=== PATIENT | female | born 1995 | race Caucasian/White ===

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

== ENCOUNTER 2017-02-22 13:40 | Outpatient (CLI) | payer MEDICAID ==
--- NOTE | 2017-02-22 14:37 | Non Stress Test Report ---
Non Stress Test Datetime Report Generated by CPN: 02/22/2017 14:37 DEMOGRAPHIC EGA NST: 33.3 INDICATION Indication for Study: Other Indication for Study (NST) Other: LABOR CHECK- SPOTTING MONITORING Monitor Explained: Monitor Explained; Test Explained; Patient Verbalized Understanding Time on Monitor: 02/22/2017 13:58 Time off Monitor: 02/22/2017 14:29 NST Duration: 31 NST INTERVENTIONS NST Interventions: PO Hydration; Reposition Patient Physician Notified NST: H. Kike, CNM BABY A: [id number] BABY A Movement : Present Contraction Frequency : NONE FHR Baseline : 125 Accelerations : 15X15 Decelerations : None Variability : Moderate 6-25bpm NST Review: Meets Criteria for Reactive NST NST Review and Verified By : MEETA Roblero Results: Reactive NST COMMENTS NST Comments: Provider on unit, reviewed strip NST REPORT Report Trigger: Send Report
[2017-02-22 15:07] LABS: APPEARANCE,URINE SLIGHTLY-CLOUDY; BILIRUBIN,URINE NEGATIVE (NEGATIVE); GLUCOSE, URINE NEGATIVE (NEGATIVE); KETONES,URINE NEGATIVE (NEGATIVE); LEUKOCYTE ESTERASE,URINE SMALL (NEGATIVE); NITRITE,URINE NEGATIVE (NEGATIVE); PROTEIN,URINE NEGATIVE (NEGATIVE); UROBILINOGEN,URINE NEGATIVE mg/dL (<2.0)
[2017-02-22 15:19] LABS: URINE BARBITURATES SCREEN NEGATIVE; URINE METHADONE SCREEN NEGATIVE; URINE OPIATES LOW NEGATIVE; URINE PHENCYCLIDINE SCREEN NEGATIVE
--- NOTE | 2017-02-22 17:51 | L&D Discharge Summary ---
OB Discharge Summary Datetime Report Generated by CPN: 02/22/2017 17:51 DISCHARGE DIAGNOSIS Diagnosis/Symptoms: Reassuring Surveillance - Annotate Details; Vaginal Bleeding; Other Diagnoses/Symptoms Other: Vaginal bleeding- Not in Labor Treatment/Procedures Other: amnisure Gestation: 33.2 Number of Babies in Womb: 1 Parity: 1 DIET/ACTIVITY/RESTRICTIONS Diet: Regular Activity: Normal Activity TEACHING/INSTRUCTIONS/REFERRALS Instructions Given To: Pt Instructions Understood: Patient Verbalized Understanding; Support Person Verbalized Understanding Referrals: None Educational Materials- Other: General d/c insturctions DISCHARGE INFORMATION Discharged AMA: No Discharge Date/Time: 02/22/2017 14:30 Discharged To: Home Discharge Provider Name: H. Kike, CNM Accompanied By: Significant Other Discharge Method: Ambulatory Condition: Stable FOLLOW UP INFORMATION Follow Up With: [facility] Follow Up On: As Scheduled Follow Up Phone Number: [facility] - GENERAL INSTR-CALL PROVIDER IF: Period Like Cramps: Period-like cramps or low dull backache that may come and go Cramps/Diarrhea: Abdominal cramps that may be accompanied by diarrhea Gush of Fluid/Blood: Gush of fluid or blood from your vagina (it is normal to have spotting after vaginal exam or intercourse) Vaginal Discharge: Change in the type or amount of vaginal discharge Decreased Movement: Your baby is not moving as much as usual- 4 movements in 1 hour after drinking and resting on side Temperature: Temperature greater than 100.0(F) orally
--- NOTE | 2017-02-24 22:47 | Antepartum Discharge Summary ---
Antepartum DC Datetime Report Generated by CPN: 02/24/2017 22:45 DIET/ACTIVITY/RESTRICTIONS Diet: Regular (02/22/2017 14:22:Katrina Marhefka, RN) Activity: Normal Activity (02/22/2017 14:22:Katrina Marhefka, RN) TEACHING/INSTRUCTIONS/REFERRALS Instructions Given To: Pt (02/22/2017 14:22:Katrina Marhefka, RN) Instructions Understood: Patient Verbalized Understanding; Support Person Verbalized Understanding (02/22/2017 14:22:Katrina Haley RN) Referrals: None (02/22/2017 14:22:Katrina Haley RN) Educational Materials- Other: General d/c insturctions (02/22/2017 14:22:Katrina Haley RN) DISCHARGE INFORMATION Discharged AMA: No (02/22/2017 14:22:Katrina Haley RN) Discharge Date/Time: 02/22/2017 14:30 (02/22/2017 14:22:Katrina Haley RN) Discharged To: Home (02/22/2017 14:22:Katrina Haley RN) Discharge Provider Name: Enoc Stokes CNM (02/22/2017 14:22:Katrina Haley RN) Accompanied By: Significant Other (02/22/2017 14:22:Katrina Haley RN) Discharge Method: Ambulatory (02/22/2017 14:22:Katrina Haley RN) Condition: Stable (02/22/2017 14:22:Katrina Haley RN) FOLLOW UP INFORMATION Follow Up With: [facility] (02/22/2017 14:22:Katrina Haley RN) Follow Up On: As Scheduled (02/22/2017 14:22:Katrina Haley RN) Follow Up Phone Number: [facility] - (02/22/2017 14:22:Katrina Haley RN) GENERAL INSTR-CALL PROVIDER IF: Period Like Cramps: Period-like cramps or low dull backache that may come and go (02/22/2017 14:22:Katrina Haley RN) Cramps/Diarrhea: Abdominal cramps that may be accompanied by diarrhea (02/22/2017 14:22:Katrina Haley RN) Gush of Fluid/Blood: Gush of fluid or blood from your vagina (it is normal to have spotting after vaginal exam or intercourse) (02/22/2017 14:22:Katrina Haley RN) Vaginal Discharge: Change in the type or amount of vaginal discharge (02/22/2017 14:22:Katrina Haley RN) Decreased Movement: Your baby is not moving as much as usual- 4 movements in 1 hour after drinking and resting on side (02/22/2017 14:22:Katrina Haley RN) Temperature: Temperature greater than 100.0(F) orally (02/22/2017 14:22:Katrina Haley RN) Hypertension Signs/Symptoms: Severe headache which is not relieved 30 minutes after taking Tylenol(Acetaminophen); Blurry vision or spots before your eyes; Severe heartburn or pain on the upper right side of your abdomen that is not relieved by an antacid; Increased swelling in your face, hands or feet (02/22/2017 14:22:Katrina Haley RN) Urinary Output: Decreased urinary output or dark colored urine (02/22/2017 14:22:Katrina Haley RN)
--- NOTE | 2017-02-24 22:47 | L&D Current Admission ---
Current Admit Datetime Report Generated by CPN: 02/24/2017 22:45 ADMISSION INFORMATION Chief Complaint: Pt states that her Rt leg swelled up within 5 minutes last night, Pt's significant other also stated he believes, "she is dilated because during intercourse last night she felt more open." Pt also stated she was bleeding like a period. (02/22/2017 14:00:Katrina Haley RN)
--- NOTE | 2017-02-24 22:47 | L&D General Admission ---
General Admit Datetime Report Generated by CPN: 02/24/2017 22:45 INFORMATION Patient Age: 21 (12/08/2016 11:43:QS system process) EDC: 04/09/2017 00:00 (12/08/2016 12:36:Liliam Bellavance, RNC) : 2 (12/08/2016 12:36:Liliam Bellavance, RNC) Para: 1 (12/08/2016 13:15:Liliam Bellavance, RNC) Para: 1 (12/08/2016 12:36:Liliam Bellavance, RNC) Term: 1 (12/08/2016 12:36:Liliam Bellavance, RNC) : 0 (12/08/2016 12:36:Liliam Bellavance, RNC) Spontaneous Abortions: 0 (12/08/2016 12:36:Liliam Bellavance, RNC) Induced Abortions: 0 (12/08/2016 12:36:Liliam Bellavance, RNC) Livin (12/08/2016 12:36:Liliam Bellavance, RNC) Cesareans: 0 (12/08/2016 12:36:Liliam Bellavance, RNC) VBACs: 0 (12/08/2016 12:36:Liliam Bellavance, RNC) Ectopic: 0 (12/08/2016 12:36:Liliam Bellavance, RNC) Multiple Births: 0 (12/08/2016 12:36:Liliam Bellavance, RNC) Baby, Number in Womb: 1 (12/08/2016 13:15:Lilaim Bellavance, RNC) Baby, Number in Womb: 1 (12/08/2016 12:36:Liliam Bellavance, RNC) CARE Primary Liaison Planner: [facility] (12/08/2016 12:36:Liliam Bellavance, RNC) Adequate Care: No (12/08/2016 12:36:Liliam Bellavance, RNC) Prepregnancy Weight (lb): 156 (12/08/2016 12:36:Liliam Bellavance, RNC) Prepregnancy Weight (kg): 70.9 (12/08/2016 12:36:QS system process) Height (in): 65 (12/08/2016 13:00:QS system process) ALLERGIES Medication Allergy: Yes (12/08/2016 12:36:Liliam Bellavance, RNC) Medication Allergies: anesthesia unknown type (12/08/2016 12:36:Liliam Bellavance, RNC) Latex Allergy: No Latex Allergies (12/08/2016 12:36:Liliam Bellavance, RNC) Food Allergies: no (12/08/2016 12:36:Liliam Bellavance, RNC) Environmental Allergies: no (12/08/2016 12:36:Liliam Bellavance, RNC) COMMUNICATION Primary Language: Greenlandic (12/08/2016 12:36:Liliam Bellavance, RNC) Communication Barrier(s): None (12/08/2016 12:36:Liliam Bellavance, RNC) DEMOGRAPHICS Address: [address] [place] [id number] (12/08/2016 11:43:QS system process) Zipcode: [id number] (12/08/2016 11:43:QS system process) Home (12/08/2016 11:43:QS system process) SSN: [id number] (12/08/2016 11:43:QS system process) Next of Kin Name: ALYCIA ADAM (12/08/2016 11:43:QS system process) Next of Kin (12/08/2016 11:43:QS system process) Next of Kin Relationship: OR (12/08/2016 11:43:QS system process) Date of : 1995 (12/08/2016 11:43:QS system process) Marital Status: (12/08/2016 11:43:QS system process) Sex: Female (12/08/2016 11:43:QS system process) Race: (12/08/2016 11:43:QS system process) Ethnicity: Non- or (12/08/2016 11:43:QS system process) Roman Catholic: None (12/08/2016 11:43:QS system process) DRUG AND ALCOHOL USE Alcohol: No (12/08/2016 12:36:Katrina Haley RN) Cigarettes: Never Smoker. [id number] (12/08/2016 12:36:Katrina Haley RN) Marijuana: No (12/08/2016 12:36:Katrina Haley RN) Cocaine: No (12/08/2016 12:36:Katrina Haley RN) Other Illicit Drugs: No (12/08/2016 12:36:Ktarina Haley RN) VACCINE HISTORY Influenza Vaccine: No (12/08/2016 12:36:Katrina Haley RN) Pneumococcal Vaccine: No (12/08/2016 12:36:Katrina Haley RN) Tetanus Vaccine: Yes (12/08/2016 12:36:Katrina Haley RN) Tdap Vaccine: No (12/08/2016 12:36:Katrina Haley RN) Hepatitis B Vaccine: Yes (12/08/2016 12:36:Katrina Haley RN) Feeding Preference: Both (12/08/2016 12:36:Katrina Haley RN) Benefit of Breast Feed Discussed: Yes (12/08/2016 12:36:Katrina Haley RN) Circumcision: No (12/08/2016 12:36:Katrina Haley RN) Classes Attended: No (12/08/2016 12:36:Katrina Haley RN) Tubal Ligation: No (12/08/2016 12:36:Katrina Haley RN) Tubal Authorization Signed: N/A (12/08/2016 12:36:Katrina Haley RN) Consent: N/A (12/08/2016 12:36:Katrina Haley RN) Consent Signed: N/A (12/08/2016 12:36:Katrina Haley RN) Pain Management Plans: Epidural (12/08/2016 12:36:ROLAND Padgett) Plans for Labor and Delivery: None (12/08/2016 12:36:ROLAND Padgett) Support Person: Octaviano Walden (12/08/2016 12:36:Katrina Haley RN) Support Person Relationship: Significant Other (12/08/2016 12:36:Katrina Haley RN) Cultural/Spritual Practice: No (12/08/2016 12:36:Katrina Haley RN) Spir/Cult Dietary Needs: No (12/08/2016 12:36:Katrina Haley RN) LIVING SITUATION/DISCHARGE PLAN Living Arrangements: House (12/08/2016 12:36:ROLAND Padgett) Adequate Access to:: Electric; Heat; Refrigeration; Plumbing/Running water; Phone; Transportation (12/08/2016 12:36:ROLAND Padgett) WIC Program: Yes (12/08/2016 12:36:ROLAND Padgett) Discharge Lumber Material Handler Person: Octaviano Walden (12/08/2016 12:36:Katrina Haley RN) Person to Help after Discharge: Octaviano Win (12/08/2016 12:36:Katrina Haley RN) Currently Using Commun Resources: Yes (12/08/2016 12:36:Katrina Haley RN) Specify Current Resource Used: Medicaid (12/08/2016 12:36:Katrina Haley RN) Outside Agency/Transferrer: Yes (12/08/2016 12:36:Katrina Haley RN) Car Seat for Discharge: Yes (12/08/2016 12:36:ROLAND Padgett) Adoption Requested: No (12/08/2016 12:36:ROLAND Padgett) Pt Contact w/infant Post : N/A (12/08/2016 12:36:ROLAND Padgett)
--- NOTE | 2017-02-24 22:47 | L&D Discharge Summary ---
OB Discharge Summary Datetime Report Generated by CPN: 02/24/2017 22:45 DISCHARGE DIAGNOSIS Diagnosis/Symptoms: Reassuring Surveillance - Annotate Details; Vaginal Bleeding; Other Diagnoses/Symptoms Other: Vaginal bleeding- Not in Labor Treatment/Procedures Other: amnisure Gestation: 33.3 Number of Babies in Womb: 1 Parity: 1 DIET/ACTIVITY/RESTRICTIONS Diet: Regular Activity: Normal Activity TEACHING/INSTRUCTIONS/REFERRALS Instructions Given To: Pt Instructions Understood: Patient Verbalized Understanding; Support Person Verbalized Understanding Referrals: None Educational Materials- Other: General d/c insturctions DISCHARGE INFORMATION Discharged AMA: No Discharge Date/Time: 02/22/2017 14:30 Discharged To: Home Discharge Provider Name: H. Kike, CNM Accompanied By: Significant Other Discharge Method: Ambulatory Condition: Stable FOLLOW UP INFORMATION Follow Up With: [facility] Follow Up On: As Scheduled Follow Up Phone Number: [facility] - GENERAL INSTR-CALL PROVIDER IF: Period Like Cramps: Period-like cramps or low dull backache that may come and go Cramps/Diarrhea: Abdominal cramps that may be accompanied by diarrhea Gush of Fluid/Blood: Gush of fluid or blood from your vagina (it is normal to have spotting after vaginal exam or intercourse) Vaginal Discharge: Change in the type or amount of vaginal discharge Decreased Movement: Your baby is not moving as much as usual- 4 movements in 1 hour after drinking and resting on side Temperature: Temperature greater than 100.0(F) orally
--- NOTE | 2017-02-25 04:47 | L&D General Admission ---
General Admit Datetime Report Generated by CPN: 02/25/2017 04:45 INFORMATION Patient Age: 21 (12/08/2016 11:43:QS system process) EDC: 04/09/2017 00:00 (12/08/2016 12:36:Liliam Bellavance, RNC) : 2 (12/08/2016 12:36:Liliam Bellavance, RNC) Para: 1 (12/08/2016 13:15:Liliam Bellavance, RNC) Para: 1 (12/08/2016 12:36:Liliam Bellavance, RNC) Term: 1 (12/08/2016 12:36:Liliam Bellavance, RNC) : 0 (12/08/2016 12:36:Liliam Bellavance, RNC) Spontaneous Abortions: 0 (12/08/2016 12:36:Liliam Bellavance, RNC) Induced Abortions: 0 (12/08/2016 12:36:Liliam Bellavance, RNC) Livin (12/08/2016 12:36:Liliam Bellavance, RNC) Cesareans: 0 (12/08/2016 12:36:Liliam Bellavance, RNC) VBACs: 0 (12/08/2016 12:36:Liliam Bellavance, RNC) Ectopic: 0 (12/08/2016 12:36:Liliam Bellavance, RNC) Multiple Births: 0 (12/08/2016 12:36:Liliam Bellavance, RNC) Baby, Number in Womb: 1 (12/08/2016 13:15:Liliam Bellavance, RNC) Baby, Number in Womb: 1 (12/08/2016 12:36:Liliam Bellavance, RNC) CARE Primary Securities Compliance Examiner: [facility] (12/08/2016 12:36:Liliam Bellavance, RNC) Adequate Care: No (12/08/2016 12:36:Liliam Bellavance, RNC) Prepregnancy Weight (lb): 156 (12/08/2016 12:36:Liliam Bellavance, RNC) Prepregnancy Weight (kg): 70.9 (12/08/2016 12:36:QS system process) Height (in): 65 (12/08/2016 13:00:QS system process) ALLERGIES Medication Allergy: Yes (12/08/2016 12:36:Liliam Bellavance, RNC) Medication Allergies: anesthesia unknown type (12/08/2016 12:36:Liliam Bellavance, RNC) Latex Allergy: No Latex Allergies (12/08/2016 12:36:Liliam Bellavance, RNC) Food Allergies: no (12/08/2016 12:36:Liliam Bellavance, RNC) Environmental Allergies: no (12/08/2016 12:36:Liliam Bellavance, RNC) COMMUNICATION Primary Language: Thai (12/08/2016 12:36:Liliam Bellavance, RNC) Communication Barrier(s): None (12/08/2016 12:36:Liliam Bellavance, RNC) DEMOGRAPHICS Address: [address] [place] [id number] (12/08/2016 11:43:QS system process) Zipcode: [phone] (12/08/2016 11:43:QS system process) Home (12/08/2016 11:43:QS system process) SSN: [id number] (12/08/2016 11:43:QS system process) Next of Kin Name: ALYCIA ADAM (12/08/2016 11:43:QS system process) Next of Kin (12/08/2016 11:43:QS system process) Next of Kin Relationship: OR (12/08/2016 11:43:QS system process) Date of : 1995 (12/08/2016 11:43:QS system process) Marital Status: (12/08/2016 11:43:QS system process) Sex: Female (12/08/2016 11:43:QS system process) Race: (12/08/2016 11:43:QS system process) Ethnicity: Non- or (12/08/2016 11:43:QS system process) Sabianist: None (12/08/2016 11:43:QS system process) DRUG AND ALCOHOL USE Alcohol: No (12/08/2016 12:36:Katrina Haley RN) Cigarettes: Never Smoker. [id number] (12/08/2016 12:36:Katrina Haley RN) Marijuana: No (12/08/2016 12:36:Katrina Haley RN) Cocaine: No (12/08/2016 12:36:Katrina Haley RN) Other Illicit Drugs: No (12/08/2016 12:36:Katrina Haley RN) VACCINE HISTORY Influenza Vaccine: No (12/08/2016 12:36:Katrian Haley RN) Pneumococcal Vaccine: No (12/08/2016 12:36:Katrina Haley RN) Tetanus Vaccine: Yes (12/08/2016 12:36:Katrina Haley RN) Tdap Vaccine: No (12/08/2016 12:36:Katrina Haley RN) Hepatitis B Vaccine: Yes (12/08/2016 12:36:Katrina Haley RN) Feeding Preference: Both (12/08/2016 12:36:Katrina Haley RN) Benefit of Breast Feed Discussed: Yes (12/08/2016 12:36:Katrina Haley RN) Circumcision: No (12/08/2016 12:36:Katrina Haley RN) Classes Attended: No (12/08/2016 12:36:Katrina Haley RN) Tubal Ligation: No (12/08/2016 12:36:Katrina Haley RN) Tubal Authorization Signed: N/A (12/08/2016 12:36:Katrina Haley RN) Consent: N/A (12/08/2016 12:36:Katrina Haley RN) Consent Signed: N/A (12/08/2016 12:36:Katrina Haley RN) Pain Management Plans: Epidural (12/08/2016 12:36:ROLAND Padgett) Plans for Labor and Delivery: None (12/08/2016 12:36:ROLAND Padgett) Support Person: Octaviano Walden (12/08/2016 12:36:Katrina Haley RN) Support Person Relationship: Significant Other (12/08/2016 12:36:Katrina Haley RN) Cultural/Spritual Practice: No (12/08/2016 12:36:Katrina Haley RN) Spir/Cult Dietary Needs: No (12/08/2016 12:36:Katrina Haley RN) LIVING SITUATION/DISCHARGE PLAN Living Arrangements: House (12/08/2016 12:36:ROLAND Padgett) Adequate Access to:: Electric; Heat; Refrigeration; Plumbing/Running water; Phone; Transportation (12/08/2016 12:36:ROLAND Padgett) WIC Program: Yes (12/08/2016 12:36:ROLAND Padgett) Discharge Practice Specialist Person: Octaviano Walden (12/08/2016 12:36:Katrina Haley RN) Person to Help after Discharge: Octaviano Win (12/08/2016 12:36:Katrina Haley RN) Currently Using Commun Resources: Yes (12/08/2016 12:36:Katrina Haley RN) Specify Current Resource Used: Medicaid (12/08/2016 12:36:Katrina Haley RN) Outside Agency/Soil And Plant Scientist: Yes (12/08/2016 12:36:Katrina Haley RN) Car Seat for Discharge: Yes (12/08/2016 12:36:ROLAND Padgett) Adoption Requested: No (12/08/2016 12:36:ROLAND Padgett) Pt Contact w/infant Post : N/A (12/08/2016 12:36:ROLAND Padgett)
--- NOTE | 2017-02-25 04:47 | L&D Current Admission ---
Current Admit Datetime Report Generated by CPN: 02/25/2017 04:45 ADMISSION INFORMATION Chief Complaint: Pt states that her Rt leg swelled up within 5 minutes last night, Pt's significant other also stated he believes, "she is dilated because during intercourse last night she felt more open." Pt also stated she was bleeding like a period. (02/22/2017 14:00:Katrina Haley RN)
--- NOTE | 2017-02-25 04:47 | L&D Discharge Summary ---
OB Discharge Summary Datetime Report Generated by CPN: 02/25/2017 04:45 DISCHARGE DIAGNOSIS Diagnosis/Symptoms: Reassuring Surveillance - Annotate Details; Vaginal Bleeding; Other Diagnoses/Symptoms Other: Vaginal bleeding- Not in Labor Treatment/Procedures Other: amnisure Gestation: 33.3 Number of Babies in Womb: 1 Parity: 1 DIET/ACTIVITY/RESTRICTIONS Diet: Regular Activity: Normal Activity TEACHING/INSTRUCTIONS/REFERRALS Instructions Given To: Pt Instructions Understood: Patient Verbalized Understanding; Support Person Verbalized Understanding Referrals: None Educational Materials- Other: General d/c insturctions DISCHARGE INFORMATION Discharged AMA: No Discharge Date/Time: 02/22/2017 14:30 Discharged To: Home Discharge Provider Name: H. Kike, CNM Accompanied By: Significant Other Discharge Method: Ambulatory Condition: Stable FOLLOW UP INFORMATION Follow Up With: [facility] Follow Up On: As Scheduled Follow Up Phone Number: [facility] - GENERAL INSTR-CALL PROVIDER IF: Period Like Cramps: Period-like cramps or low dull backache that may come and go Cramps/Diarrhea: Abdominal cramps that may be accompanied by diarrhea Gush of Fluid/Blood: Gush of fluid or blood from your vagina (it is normal to have spotting after vaginal exam or intercourse) Vaginal Discharge: Change in the type or amount of vaginal discharge Decreased Movement: Your baby is not moving as much as usual- 4 movements in 1 hour after drinking and resting on side Temperature: Temperature greater than 100.0(F) orally
--- NOTE | 2017-02-25 04:47 | Antepartum Discharge Summary ---
Antepartum DC Datetime Report Generated by CPN: 02/25/2017 04:45 DIET/ACTIVITY/RESTRICTIONS Diet: Regular (02/22/2017 14:22:Katrina Marhefka, RN) Activity: Normal Activity (02/22/2017 14:22:Katrina Marhefka, RN) TEACHING/INSTRUCTIONS/REFERRALS Instructions Given To: Pt (02/22/2017 14:22:Katrina Marhefka, RN) Instructions Understood: Patient Verbalized Understanding; Support Person Verbalized Understanding (02/22/2017 14:22:Katrina Haley RN) Referrals: None (02/22/2017 14:22:Katrina Haley RN) Educational Materials- Other: General d/c insturctions (02/22/2017 14:22:Katrina Haley RN) DISCHARGE INFORMATION Discharged AMA: No (02/22/2017 14:22:Katrina Haley RN) Discharge Date/Time: 02/22/2017 14:30 (02/22/2017 14:22:Katrina Haley RN) Discharged To: Home (02/22/2017 14:22:Katrina Haley RN) Discharge Provider Name: Enoc Stokes CNM (02/22/2017 14:22:Katrina Haley RN) Accompanied By: Significant Other (02/22/2017 14:22:Katrina Haley RN) Discharge Method: Ambulatory (02/22/2017 14:22:Katrina Haley RN) Condition: Stable (02/22/2017 14:22:Katrina Haley RN) FOLLOW UP INFORMATION Follow Up With: [facility] (02/22/2017 14:22:Katrina Haley RN) Follow Up On: As Scheduled (02/22/2017 14:22:Katrina Haley RN) Follow Up Phone Number: [facility] - (02/22/2017 14:22:Katrina Haley RN) GENERAL INSTR-CALL PROVIDER IF: Period Like Cramps: Period-like cramps or low dull backache that may come and go (02/22/2017 14:22:Katrina Haley RN) Cramps/Diarrhea: Abdominal cramps that may be accompanied by diarrhea (02/22/2017 14:22:Katrina Haley RN) Gush of Fluid/Blood: Gush of fluid or blood from your vagina (it is normal to have spotting after vaginal exam or intercourse) (02/22/2017 14:22:Katrina Haley RN) Vaginal Discharge: Change in the type or amount of vaginal discharge (02/22/2017 14:22:Katrina Haley RN) Decreased Movement: Your baby is not moving as much as usual- 4 movements in 1 hour after drinking and resting on side (02/22/2017 14:22:Katrina Haley RN) Temperature: Temperature greater than 100.0(F) orally (02/22/2017 14:22:Katrina Haley RN) Hypertension Signs/Symptoms: Severe headache which is not relieved 30 minutes after taking Tylenol(Acetaminophen); Blurry vision or spots before your eyes; Severe heartburn or pain on the upper right side of your abdomen that is not relieved by an antacid; Increased swelling in your face, hands or feet (02/22/2017 14:22:Katrina Haley RN) Urinary Output: Decreased urinary output or dark colored urine (02/22/2017 14:22:Katrina Haley RN)
--- NOTE | 2017-02-25 10:47 | Antepartum Discharge Summary ---
Antepartum DC Datetime Report Generated by CPN: 02/25/2017 10:45 DIET/ACTIVITY/RESTRICTIONS Diet: Regular (02/22/2017 14:22:Katrina Marhefka, RN) Activity: Normal Activity (02/22/2017 14:22:Katrina Marhefka, RN) TEACHING/INSTRUCTIONS/REFERRALS Instructions Given To: Pt (02/22/2017 14:22:Katrina Marhefka, RN) Instructions Understood: Patient Verbalized Understanding; Support Person Verbalized Understanding (02/22/2017 14:22:Katrina Haley RN) Referrals: None (02/22/2017 14:22:Katrina Haley RN) Educational Materials- Other: General d/c insturctions (02/22/2017 14:22:Katrina Haley RN) DISCHARGE INFORMATION Discharged AMA: No (02/22/2017 14:22:Katrina Haley RN) Discharge Date/Time: 02/22/2017 14:30 (02/22/2017 14:22:Katrina Haley RN) Discharged To: Home (02/22/2017 14:22:Katrina Haley RN) Discharge Provider Name: Enoc Stokes CNM (02/22/2017 14:22:Katrina Haley RN) Accompanied By: Significant Other (02/22/2017 14:22:Katrina Haley RN) Discharge Method: Ambulatory (02/22/2017 14:22:Katrina Haley RN) Condition: Stable (02/22/2017 14:22:Katrina Haley RN) FOLLOW UP INFORMATION Follow Up With: [facility] (02/22/2017 14:22:Katrina Haley RN) Follow Up On: As Scheduled (02/22/2017 14:22:Katrina Haley RN) Follow Up Phone Number: [facility] - (02/22/2017 14:22:Katrina Haley RN) GENERAL INSTR-CALL PROVIDER IF: Period Like Cramps: Period-like cramps or low dull backache that may come and go (02/22/2017 14:22:Katrina Haley RN) Cramps/Diarrhea: Abdominal cramps that may be accompanied by diarrhea (02/22/2017 14:22:Katrina Haley RN) Gush of Fluid/Blood: Gush of fluid or blood from your vagina (it is normal to have spotting after vaginal exam or intercourse) (02/22/2017 14:22:Katrina Haley RN) Vaginal Discharge: Change in the type or amount of vaginal discharge (02/22/2017 14:22:Katrina Haley RN) Decreased Movement: Your baby is not moving as much as usual- 4 movements in 1 hour after drinking and resting on side (02/22/2017 14:22:Katrina Haley RN) Temperature: Temperature greater than 100.0(F) orally (02/22/2017 14:22:Katrina Haley RN) Hypertension Signs/Symptoms: Severe headache which is not relieved 30 minutes after taking Tylenol(Acetaminophen); Blurry vision or spots before your eyes; Severe heartburn or pain on the upper right side of your abdomen that is not relieved by an antacid; Increased swelling in your face, hands or feet (02/22/2017 14:22:Katrina Haley RN) Urinary Output: Decreased urinary output or dark colored urine (02/22/2017 14:22:Katrina Haley RN)
--- NOTE | 2017-02-25 10:47 | L&D Discharge Summary ---
OB Discharge Summary Datetime Report Generated by CPN: 02/25/2017 10:45 DISCHARGE DIAGNOSIS Diagnosis/Symptoms: Reassuring Surveillance - Annotate Details; Vaginal Bleeding; Other Diagnoses/Symptoms Other: Vaginal bleeding- Not in Labor Treatment/Procedures Other: amnisure Gestation: 33.3 Number of Babies in Womb: 1 Parity: 1 DIET/ACTIVITY/RESTRICTIONS Diet: Regular Activity: Normal Activity TEACHING/INSTRUCTIONS/REFERRALS Instructions Given To: Pt Instructions Understood: Patient Verbalized Understanding; Support Person Verbalized Understanding Referrals: None Educational Materials- Other: General d/c insturctions DISCHARGE INFORMATION Discharged AMA: No Discharge Date/Time: 02/22/2017 14:30 Discharged To: Home Discharge Provider Name: H. Kike, CNM Accompanied By: Significant Other Discharge Method: Ambulatory Condition: Stable FOLLOW UP INFORMATION Follow Up With: [facility] Follow Up On: As Scheduled Follow Up Phone Number: [facility] - GENERAL INSTR-CALL PROVIDER IF: Period Like Cramps: Period-like cramps or low dull backache that may come and go Cramps/Diarrhea: Abdominal cramps that may be accompanied by diarrhea Gush of Fluid/Blood: Gush of fluid or blood from your vagina (it is normal to have spotting after vaginal exam or intercourse) Vaginal Discharge: Change in the type or amount of vaginal discharge Decreased Movement: Your baby is not moving as much as usual- 4 movements in 1 hour after drinking and resting on side Temperature: Temperature greater than 100.0(F) orally
--- NOTE | 2017-02-25 10:47 | L&D General Admission ---
General Admit Datetime Report Generated by CPN: 02/25/2017 10:45 INFORMATION Patient Age: 21 (12/08/2016 11:43:QS system process) EDC: 04/09/2017 00:00 (12/08/2016 12:36:Liliam Bellavance, RNC) : 2 (12/08/2016 12:36:Liliam Bellavance, RNC) Para: 1 (12/08/2016 13:15:Liliam Bellavance, RNC) Para: 1 (12/08/2016 12:36:Liliam Bellavance, RNC) Term: 1 (12/08/2016 12:36:Liliam Bellavance, RNC) : 0 (12/08/2016 12:36:Liliam Bellavance, RNC) Spontaneous Abortions: 0 (12/08/2016 12:36:Liliam Bellavance, RNC) Induced Abortions: 0 (12/08/2016 12:36:Liliam Bellavance, RNC) Livin (12/08/2016 12:36:Liliam Bellavance, RNC) Cesareans: 0 (12/08/2016 12:36:Liliam Bellavance, RNC) VBACs: 0 (12/08/2016 12:36:Liliam Bellavance, RNC) Ectopic: 0 (12/08/2016 12:36:Liliam Bellavance, RNC) Multiple Births: 0 (12/08/2016 12:36:Liliam Bellavance, RNC) Baby, Number in Womb: 1 (12/08/2016 13:15:Liliam Bellavance, RNC) Baby, Number in Womb: 1 (12/08/2016 12:36:Liliam Bellavance, RNC) CARE Primary Guard Rail Installer: [facility] (12/08/2016 12:36:Liliam Bellavance, RNC) Adequate Care: No (12/08/2016 12:36:Liliam Bellavance, RNC) Prepregnancy Weight (lb): 156 (12/08/2016 12:36:Liliam Bellavance, RNC) Prepregnancy Weight (kg): 70.9 (12/08/2016 12:36:QS system process) Height (in): 65 (12/08/2016 13:00:QS system process) ALLERGIES Medication Allergy: Yes (12/08/2016 12:36:Liliam Bellavance, RNC) Medication Allergies: anesthesia unknown type (12/08/2016 12:36:Liliam Bellavance, RNC) Latex Allergy: No Latex Allergies (12/08/2016 12:36:Liliam Bellavance, RNC) Food Allergies: no (12/08/2016 12:36:Liliam Bellavance, RNC) Environmental Allergies: no (12/08/2016 12:36:Liliam Bellavance, RNC) COMMUNICATION Primary Language: Divehi (12/08/2016 12:36:Liliam Bellavance, RNC) Communication Barrier(s): None (12/08/2016 12:36:Liliam Bellavance, RNC) DEMOGRAPHICS Address: [address] [place] [id number] (12/08/2016 11:43:QS system process) Zipcode: [address] (12/08/2016 11:43:QS system process) Home (12/08/2016 11:43:QS system process) SSN: [id number] (12/08/2016 11:43:QS system process) Next of Kin Name: ALYCIA ADAM (12/08/2016 11:43:QS system process) Next of Kin (12/08/2016 11:43:QS system process) Next of Kin Relationship: OR (12/08/2016 11:43:QS system process) Date of : 1995 (12/08/2016 11:43:QS system process) Marital Status: (12/08/2016 11:43:QS system process) Sex: Female (12/08/2016 11:43:QS system process) Race: (12/08/2016 11:43:QS system process) Ethnicity: Non- or (12/08/2016 11:43:QS system process) Worship: None (12/08/2016 11:43:QS system process) DRUG AND ALCOHOL USE Alcohol: No (12/08/2016 12:36:Katrina Haley RN) Cigarettes: Never Smoker. [id number] (12/08/2016 12:36:Katrina Haley RN) Marijuana: No (12/08/2016 12:36:Katrina Haley RN) Cocaine: No (12/08/2016 12:36:Katrina Haley RN) Other Illicit Drugs: No (12/08/2016 12:36:Katrina Haley RN) VACCINE HISTORY Influenza Vaccine: No (12/08/2016 12:36:Katrina Haley RN) Pneumococcal Vaccine: No (12/08/2016 12:36:Katrina Haley RN) Tetanus Vaccine: Yes (12/08/2016 12:36:Katrina Haley RN) Tdap Vaccine: No (12/08/2016 12:36:Katrina Haley RN) Hepatitis B Vaccine: Yes (12/08/2016 12:36:Katrina Haley RN) Feeding Preference: Both (12/08/2016 12:36:Katrina Haley RN) Benefit of Breast Feed Discussed: Yes (12/08/2016 12:36:Katrina Haley RN) Circumcision: No (12/08/2016 12:36:Katrina Haley RN) Classes Attended: No (12/08/2016 12:36:Katrina Haley RN) Tubal Ligation: No (12/08/2016 12:36:Katrina Haley RN) Tubal Authorization Signed: N/A (12/08/2016 12:36:Katrina Haley RN) Consent: N/A (12/08/2016 12:36:Katrina Haley RN) Consent Signed: N/A (12/08/2016 12:36:Katrina Haley RN) Pain Management Plans: Epidural (12/08/2016 12:36:ROLAND Padgett) Plans for Labor and Delivery: None (12/08/2016 12:36:ROLAND Padgett) Support Person: Octaviano Walden (12/08/2016 12:36:Katrina Haley RN) Support Person Relationship: Significant Other (12/08/2016 12:36:Katrina Haley RN) Cultural/Spritual Practice: No (12/08/2016 12:36:Katrina Haley RN) Spir/Cult Dietary Needs: No (12/08/2016 12:36:Katrina Haley RN) LIVING SITUATION/DISCHARGE PLAN Living Arrangements: House (12/08/2016 12:36:ROLAND Padgett) Adequate Access to:: Electric; Heat; Refrigeration; Plumbing/Running water; Phone; Transportation (12/08/2016 12:36:ROLAND Padgett) WIC Program: Yes (12/08/2016 12:36:ROLAND Padgett) Discharge Parts Control Clerk Person: Octaviano Walden (12/08/2016 12:36:Katrina Haley RN) Person to Help after Discharge: Octaviano Win (12/08/2016 12:36:Katrina Haley RN) Currently Using Commun Resources: Yes (12/08/2016 12:36:Katrina Haley RN) Specify Current Resource Used: Medicaid (12/08/2016 12:36:Katrnia Haley RN) Outside Agency/Industrial Pharmacist: Yes (12/08/2016 12:36:Katrina Haley RN) Car Seat for Discharge: Yes (12/08/2016 12:36:ROLAND Padgett) Adoption Requested: No (12/08/2016 12:36:ROLAND Padgett) Pt Contact w/infant Post : N/A (12/08/2016 12:36:ROLAND Padgett)
--- NOTE | 2017-02-25 10:47 | L&D Current Admission ---
Current Admit Datetime Report Generated by CPN: 02/25/2017 10:45 ADMISSION INFORMATION Chief Complaint: Pt states that her Rt leg swelled up within 5 minutes last night, Pt's significant other also stated he believes, "she is dilated because during intercourse last night she felt more open." Pt also stated she was bleeding like a period. (02/22/2017 14:00:Katrina Haley RN)
== END 2017-02-22 14:35 | disposition home or self-care (01) ==
LOC: LC 13:40
PROVIDERS: ATTEND Obstetrics & Gynecology
PROC: 4A1HXCZ Monitoring of Products of Conception, Cardiac Rate, External Approach (ICD-10-PCS; principal; 2017-02-22)
DX: O46.93 Antepartum hemorrhage, unspecified, third trimester (principal); Z3A.33 33 weeks gestation of pregnancy
CPT/HCPCS: 59025; 80307; 81001

== ENCOUNTER 2017-06-15 02:21 | Emergency (ER) | payer MEDICAID ==
[2017-06-15 02:27] VITALS: BP 117/62
[2017-06-15] MEDS ORDERED: NEOMY SULF/POLYMYX B SULF/HC OTIC SUSP 10 ML AS ONE (03:02)
[2017-06-15] MEDS ORDERED: IBUPROFEN 600 MG TABLET PO ONE (03:03)
--- NOTE | 2017-06-15 03:03 | ER Document Report ---
ED ENT - General Mode of Arrival: Ambulatory Information source: Patient TRAVEL OUTSIDE OF THE [place] IN LAST 30 DAYS: No - HPI Patient complains to provider of: Ear problem Onset: Yesterday Associated symptoms: Ear pain Similar symptoms previously: Yes Recently seen / treated by doctor: No - General Chief Complaint: Ear Pain Stated Complaint: EARACHE Time Seen by Provider: 06/15/17 02:53 Notes: Patient is a 21-year-old female presenting to the emergency department with chief complaint of otitis externa. Patient states that she usually gets swimmer's ear once a year. Patient denies swelling or being in the water. Patient complains of pain to her right ear and states on the lips emergency department she started experiencing pain as well in her left ear. Patient has not taken any Tylenol or Motrin and she just got off work and came to the emergency department for her pain. Patient denies any other symptoms of sore throat, congestion, or cough. Patient's pain was onset yesterday. Patient has. Patient does not have a primary care physician. (LUIS PAEZ) - Related Data Allergies/Adverse Reactions: anesthesia unsure of type Allergy (Uncoded 06/15/17 02:21) Home Medications: Current Home Medications No Home Medications 06/15/17 [History] Past Medical History - General Information source: Patient - Social History Smoking Status: Never Smoker Cigarette use (# per day): No Chew tobacco use (# tins/day): No Smoking Education Provided: No Frequency of alcohol use: None Drug Abuse: None Family History: None Patient has suicidal ideation: No Patient has homicidal ideation: No Pulmonary Medical History: Reports: Hx Asthma Past Surgical History: Reports: Hx Oral Surgery - Abscess - Immunizations Hx Diphtheria, Pertussis, Tetanus Vaccination: Yes Review of Systems - Review of Systems Constitutional: No symptoms reported EENT: See HPI, Ear pain Cardiovascular: No symptoms reported Respiratory: No symptoms reported Gastrointestinal: No symptoms reported Genitourinary: No symptoms reported Female Genitourinary: No symptoms reported Musculoskeletal: No symptoms reported Skin: No symptoms reported Hematologic/Lymphatic: No symptoms reported Neurological/Psychological: No symptoms reported -: Yes All other systems reviewed and negative Physical Exam - Vital signs Interpretation: Normal - Vital signs Vitals: Temp Pulse Resp BP Pulse Ox 98.6 F 99 H 16 117/62 99 06/15/17 02:22 06/15/17 02:22 06/15/17 02:22 06/15/17 02:22 06/15/17 02:22 - Notes Notes: GENERAL: Alert, interacts well. No acute distress. HEAD: Normocephalic, atraumatic. EYES: Appear normal. Pupils equal, round, and reactive to light. ENT: Moist mucus membranes, tongue midline. Nares patent, no nasal septal hematoma, TM's intacts. Pain with manipulation of the external rightear. No otitis media. No signs of masses, erythema or swelling to the ear. NECK: Full range of motion. Supple. Trachea midline. LUNGS: Clear to auscultation bilaterally, no wheezes, rales, or rhonchi. No respiratory distress. HEART: Regular rate and rhythm. No murmurs, gallops, or rubs. ABDOMEN: Soft, non-tender. Non-distended. Normal bowel sounds. EXTREMITIES: Moves all 4 extremities spontaneously. Normal strength. No edema. NEUROLOGICAL: Alert and oriented x3. Normal speech. No focal neurological deficits. GSC 15. PSYCH: Normal affect, normal mood. SKIN: Warm, dry, normal turgor. No rashes or lesions noted. (LUIS PAEZ) Discharge - Discharge Clinical Impression: Nonspecific chest pain Otitis externa Qualifiers: Otitis externa type: unspecified type Chronicity: acute Laterality: right Qualified Code(s): H60.501 - Unspecified acute noninfective otitis externa, right ear Condition: Stable Disposition: HOME, SELF-CARE Additional Instructions: Otitis Externa You have otitis externa -- an infection of the outer ear canal. This can be very painful. It's sometimes called "swimmer's ear," because it often occurs after prolonged water exposure. Many things, such as earwax and dirt in the ear, can contribute to it. The usual treatment is antibiotic/antiinflammatory ear drops. Occasionally , a wick will be placed in the ear to draw in the medicine. If the infection is severe, an oral antibiotic may be prescribed. Pain medication is often needed. Avoid getting water in the ear. Outer ear infections often take longer to heal than you might expect. Some tenderness and ache in the ear may persist for about two weeks. See your physician if you fail to improve as expected. Call the doctor at once if you develop fever, increasing swelling (particularly if it makes your ear "poke out"), severe headache, stiff neck, or decreased hearing. Forms: Return to Work Referrals: [facility] [Provider Group] (Call for an appointment to be seen in follow-up in 3-5 days return for increasing worsening or new symptoms) Scribe Attestation: 06/15/17 03:05 I personally performed the services described in the documentation reviewed the documentation recorded by my scribe in my presence and it accurately and completely records my words and actions (TAE CROWELL) Scribe Documentation - Scribe Written by Scrmarlene:: Ernie Steve, 06/15/2017 3:20 acting as scribe for :: Torrey
== END 2017-06-15 03:20 | disposition home or self-care (01) ==
LOC: ER 02:21
DX: H60.501 Unspecified acute noninfective otitis externa, right ear (principal); R07.9 Chest pain, unspecified; H92.03 Otalgia, bilateral; J45.909 Unspecified asthma, uncomplicated; Z88.4 Allergy status to anesthetic agent
CPT/HCPCS: 99282; J3490 ×2

== ENCOUNTER 2017-07-31 08:28 | Emergency (ER) | payer SELFPAY ==
[2017-07-31] MEDS ORDERED: ONDANSETRON 4 MG TAB.RAPDIS PO ONE (09:10)
[2017-07-31] MEDS ORDERED: NORMAL SALINE 1000 ML 1,000 ML IV ONE (09:17)
[2017-07-31] MEDS ORDERED: FAMOTIDINE INJ/PF 20 MG/2 ML SDV IV ONE (09:17)
--- NOTE | 2017-07-31 09:18 | ER Document Report ---
ED Medical Screen (RME) - General Chief Complaint: Abdominal Pain Stated Complaint: ABDOMINAL PAIN Time Seen by Provider: 07/31/17 09:10 TRAVEL OUTSIDE OF THE [place] IN LAST 30 DAYS: No - HPI Notes: 07/31/17 09:17 Epigastric abdominal pain 3 days nausea vomiting today. - Related Data Allergies/Adverse Reactions: anesthesia unsure of type Allergy (Uncoded 07/31/17 08:41) Past Medical History Pulmonary Medical History: Reports: Hx Asthma Renal/ Medical History: Denies: Hx Peritoneal Dialysis Past Surgical History: Reports: Hx Oral Surgery - Abscess - Immunizations Hx Diphtheria, Pertussis, Tetanus Vaccination: Yes Review of Systems - Review of Systems Gastrointestinal: Abdominal pain, Nausea, Vomiting Physical Exam - Vital signs Vitals: Temp Pulse Resp BP Pulse Ox 99.3 F 81 16 124/77 99 07/31/17 08:40 07/31/17 08:40 07/31/17 08:40 07/31/17 08:40 07/31/17 08:40 Course - Vital Signs Vital signs: Temp Pulse Resp BP Pulse Ox 99.3 F 81 16 124/77 99 07/31/17 08:40 07/31/17 08:40 07/31/17 08:40 07/31/17 08:40 07/31/17 08:40
[2017-07-31 09:32] LABS: ABSOLUTE BASOPHILS # (AUTO) 0.1 10^3/uL (0.0-0.2); ABSOLUTE EOSINOPHILS # (AUTO) 0.2 10^3/uL (0.0-0.6); ABSOLUTE LYMPHOCYTES (AUTO) 1.8 10^3/uL (0.5-4.7); ABSOLUTE MONOCYTES (AUTO) 0.7 10^3/uL (0.1-1.4); ABSOLUTE NEUT (AUTO) 6.7 10^3/uL (1.7-8.2); EOSINOPHILS % (AUTO) 2.4 % (0-6); HEMATOCRIT 34.9 % (36.0-47.0); HEMOGLOBIN 12.1 g/dL (12.0-15.5); HGB HCT DIFFERENCE 1.4; LYMPHOCYTES % (AUTO) 19.1 % (13-45); MEAN CORPUSCULAR HEMOGLOBIN 29.8 pg (27.0-33.4); MEAN CORPUSCULAR HGB CONC 34.7 g/dL (32.0-36.0); MEAN CORPUSCULAR VOLUME 86 fl (80-97); RED BLOOD COUNT 4.06 10^6/uL (3.72-5.28); SEGMENTED NEUTROPHILS % (AUTO) 70.5 % (42-78); WHITE BLOOD COUNT 9.6 10^3/uL (4.0-10.5)
[2017-07-31 09:37] LABS: APPEARANCE,URINE CLEAR; BILIRUBIN,URINE NEGATIVE (NEGATIVE); GLUCOSE, URINE NEGATIVE (NEGATIVE); KETONES,URINE NEGATIVE (NEGATIVE); LEUKOCYTE ESTERASE,URINE NEGATIVE (NEGATIVE); NITRITE,URINE NEGATIVE (NEGATIVE); PROTEIN,URINE NEGATIVE (NEGATIVE); URINE SPECIFIC GRAVITY 1.008; UROBILINOGEN,URINE NEGATIVE mg/dL (<2.0)
--- NOTE | 2017-07-31 09:54 | ER Document Report ---
ED GI/ - General Chief Complaint: Abdominal Pain Stated Complaint: ABDOMINAL PAIN Time Seen by Provider: 07/31/17 09:10 Mode of Arrival: Ambulatory Information source: Patient TRAVEL OUTSIDE OF THE [place] IN LAST 30 DAYS: No - HPI Patient complains to provider of: Abdominal pain, Vomiting Onset: This morning Timing/Duration: Gradual Quality of pain: Achy, Dull Severity at maximum: Moderate Severity in ED: Moderate Context: denies: , Recent trauma Location: Epigastric, LLQ, RLQ Vaginal bleeding (Compared to normal period): None Menstrual period history: denies: Associated symptoms: Nausea, Vomiting. denies: Dysuria, Fever Exacerbated by: Food Relieved by: Denies Similar symptoms previously: No Recently seen / treated by doctor: No - Related Data Allergies/Adverse Reactions: anesthesia unsure of type Allergy (Uncoded 07/31/17 08:41) Past Medical History - General Information source: Patient - Social History Smoking Status: Unknown if Ever Smoked Frequency of alcohol use: None Drug Abuse: None Lives with: Family Family History: None Patient has suicidal ideation: No Patient has homicidal ideation: No - Past Medical History Cardiac Medical History: Reports: None Pulmonary Medical History: Reports: Hx Asthma Neurological Medical History: Reports: None Endocrine Medical History: Reports: None Renal/ Medical History: Reports: None. Denies: Hx Peritoneal Dialysis Malignancy Medical History: Reports: None GI Medical History: Reports: None Musculoskeltal Medical History: Reports None Psychiatric Medical History: Reports: None Past Surgical History: Reports: Hx Oral Surgery - Abscess - Immunizations Hx Diphtheria, Pertussis, Tetanus Vaccination: Yes Review of Systems - Review of Systems Constitutional: denies: Chills, Fever EENT: No symptoms reported Cardiovascular: No symptoms reported Respiratory: No symptoms reported Gastrointestinal: See HPI Genitourinary: No symptoms reported Female Genitourinary: No symptoms reported Musculoskeletal: No symptoms reported Skin: No symptoms reported Neurological/Psychological: No symptoms reported Physical Exam - Vital signs Vitals: Temp Pulse Resp BP Pulse Ox 99.3 F 81 16 124/77 99 07/31/17 08:40 07/31/17 08:40 07/31/17 08:40 07/31/17 08:40 07/31/17 08:40 Interpretation: Normal - General General appearance: Appears well, Alert In distress: None - HEENT Head: Normocephalic Eyes: Normal Conjunctiva: Normal Ears: Normal Nasal: Normal Mouth/Lips: Normal Mucous membranes: Dry Pharynx: Normal Neck: Normal - Respiratory Respiratory status: No respiratory distress - Cardiovascular Rhythm: Regular - Abdominal Inspection: Normal Distension: No distension Bowel sounds: Hypoactive Tenderness: Tender - MILD, DIFFUSE - Back Back: Normal - Extremities General upper extremity: Normal inspection General lower extremity: Normal inspection - Neurological Neuro grossly intact: Yes Cognition: Normal Orientation: AAOx4 - Psychological Associated symptoms: Normal affect, Normal mood - Skin Skin Temperature: Warm Skin Moisture: Dry Skin Color: Normal Skin Turgor: Elastic Course - Re-evaluation Re-evalutation: 07/31/17 12:39 Patient states she is much improved. Results of laboratory and radiographic evaluation discussed. - Vital Signs Vital signs: Temp Pulse Resp BP Pulse Ox 99.3 F 81 16 124/77 99 07/31/17 08:40 07/31/17 08:40 07/31/17 08:40 07/31/17 08:40 07/31/17 08:40 - Laboratory Result Diagrams: 07/31/17 09:15 07/31/17 09:15 Laboratory results interpreted by me: 07/31/17 07/31/17 09:15 09:15 Hct 34.9 L AST 35 H ALT 74 H Discharge - Discharge Clinical Impression: Gastritis Qualifiers: Gastritis type: unspecified gastritis Chronicity: acute Gastritis bleeding: without bleeding Qualified Code(s): K29.00 - Acute gastritis without bleeding Cholelithiasis Qualifiers: Cholelithiasis location: gallbladder Cholecystitis presence: without cholecystitis Biliary obstruction: without biliary obstruction Qualified Code(s) : K80.20 - Calculus of gallbladder without cholecystitis without obstruction Condition: Stable Disposition: HOME, SELF-CARE Instructions: Gastritis ([facility]), Gallbladder Disease ([facility]), Acid-Suppressing Medication ([facility]) Additional Instructions: BLAND DIET, AVOID GREASY OR SPICY FOODS. TAKE PEPCID OR ZANTAC OR TAGAMET DIRECTED FOR NEXT 2-3 DDAYS. FOLLOW UP WITH GENERAL SURGEON ABOUT GALLBLADDER. RETURN TO E.R. IF PROBLEMS, ANY TIME. Referrals: [facility] [Provider Group] - Follow up as needed
[2017-07-31 09:55] LABS: ALANINE AMINOTRANSFERASE 74 U/L (5-35); ALBUMIN 4.4 g/dL (3.7-5.6); ALKALINE PHOSPHATASE 89 U/L (50-135); ANION GAP 13 (5-19); ASPARTATE AMINO TRANSFERASE 35 U/L (5-30); BILIRUBIN,DIRECT 0.4 mg/dL (0.0-0.4); BILIRUBIN,TOTAL 0.5 mg/dL (0.2-1.3); BLOOD UREA NITROGEN 11 mg/dL (7-20); CALCIUM 9.7 mg/dL (8.4-10.2); CARBON DIOXIDE 24 mmol/L (22-30); CHLORIDE 105 mmol/L (98-107); CREATININE RESULT 0.73 mg/dL (0.52-1.25); GLUCOSE 87 mg/dL (75-110); LIPASE 100.9 U/L (23-300); POTASSIUM 4.4 mmol/L (3.6-5.0); SODIUM 142.2 mmol/L (137-145); TOTAL PROTEIN 7.7 g/dL (6.3-8.2)
[2017-07-31 09:56] LABS: URINE BARBITURATES SCREEN NEGATIVE; URINE METHADONE SCREEN NEGATIVE; URINE OPIATES LOW NEGATIVE; URINE PHENCYCLIDINE SCREEN NEGATIVE
[2017-07-31 09:59] LABS: ALCOHOL < 10 mg/dL (NONE DETECTED)
--- NOTE | 2017-07-31 11:21 | RADIOLOGY REPORT (SQ) ---
EXAM DESCRIPTION: U/S ABDOMEN LIMITED W/O DOP COMPLETED DATE/TIME: 07/31/2017 11:04 am REASON FOR STUDY: EPIGASTRIC PAIN, N/V COMPARISON: None. TECHNIQUE: Dynamic and static grayscale images acquired of the abdomen and recorded on PACS. Additio nal selected color Doppler and spectral images recorded. LIMITATIONS: None. FINDINGS: PANCREAS: No masses. Visualized pancreatic duct normal caliber. LIVER: No masses. Echotexture normal. LIVER VASCULATURE: Normal directional flow of the main portal vein and hepatic veins. GALLBLADDER: Gallstone(s). No pericholecystic fluid. No wall thickening. ULTRASOUND-DETECTED HUNTLEY'S SIGN: Negative. INTRAHEPATIC DUCTS AND COMMON DUCT: CBD and intrahepatic ducts normal caliber. No filling defects. INFERIOR VENA CAVA: Normal flow. AORTA: No aneurysm. RIGHT KIDNEY: Normal size. Normal echogenicity. No solid or suspicious masses. No hydronephrosis. No calcifications. PERITONEAL AND RIGHT PLEURAL SPACE: No ascites or effusions. OTHER: No other significant findings. IMPRESSION: GALLSTONES. NO OTHER SIGNIFICANT FINDINGS. TECHNICAL DOCUMENTATION: JOB ID: [id number] [employer]- All Rights Reserved
[2017-07-31] MEDS ORDERED: MAG HYDROX/AL HYDROX/SIMETH SUSP 30 ML UDCUP PO ONE (11:50)
[2017-07-31] MEDS ORDERED: METOCLOPRAMIDE HCL ORAL SOLN 10 MG/10 ML UDCUP PO ONE (11:50)
[2017-07-31] MEDS ORDERED: LIDOCAINE 2% VISCOUS SOLN 20 ML UDCUP PO ONE (11:50)
[2017-07-31] MEDS ORDERED: HYDROMORPHONE HCL INJ/PF 2 MG/ML AMPULE IV ONE (11:50)
[2017-07-31 13:30] VITALS: BP 125/78
== END 2017-07-31 13:25 | disposition home or self-care (01) ==
LOC: ER 08:28
DX: K29.00 Acute gastritis without bleeding (principal); K80.20 Calculus of gallbladder without cholecystitis without obstruction; R10.13 Epigastric pain; R10.30 Lower abdominal pain, unspecified; R11.2 Nausea with vomiting, unspecified
CPT/HCPCS: 99284; 96361; 96374; 96375; 36415; 80307 ×2; 84702; 83690; 85025; 80053; 81001; 76705; S0119; J3490; J1170; J7030; S0028

== ENCOUNTER → 2017-11-02 | Outpatient (CLI) | payer BC ==
--- NOTE | 2017-11-02 17:16 | RADIOLOGY REPORT (SQ) ---
EXAM DESCRIPTION: U/S OB TRANSVAGINAL W/O DOP COMPLETED DATE/TIME: 11/02/2017 4:48 pm REASON FOR STUDY: Z34.81 ENCOUNTER FOR SUPRVSN OF NORMAL , FIRST TRIMESTER Z34.81 ENCOUNTE R FOR SUPRVSN OF NORMAL , FIRST TRIM COMPARISON: None. TECHNIQUE: Transvaginal static and realtime grayscale images acquired of the pelvis. Additional davis cted spectral and color Doppler images recorded. All images stored on PACs. bHCG: Not applicable. LIMITATIONS: None. FINDINGS: FETUS: Living intrauterine . EGA: 6 week 2 day. JAIME: 06/26/2016. FHR: 113 beats per minute. SUBCHORIONIC BLEED: Yes. SIZE OF BLEED: 0.4 x 1.5 cm. UTERUS: No masses. No anomalies. RIGHT ADNEXA: Normal ovary with normal vascular flow. No adnexal free fluid. Cysts measuring 1.6 cm and 1.9 cm. LEFT ADNEXA: Ovary not identified. No adnexal free fluid. No adnexal masses. FREE FLUID: None. OTHER: No other significant finding. IMPRESSION: LIVING INTRAUTERINE . EGA 6 WEEK 2 DAY. Trimester of : First - 0 to 13 weeks. TECHNICAL DOCUMENTATION: JOB ID: [id number] [employer]- All Rights Reserved
== END ==
LOC: RAD 15:45
PROVIDERS: ATTEND Nurse Practitioner Women's Health
DX: Z34.81 Encounter for supervision of other normal pregnancy, first trimester (principal)
CPT/HCPCS: 76817

== ENCOUNTER 2017-12-09 10:34 | Emergency (ER) | payer SELFPAY ==
[2017-12-09 10:56] VITALS: BP 123/70
[2017-12-09] MEDS ORDERED: DIPHENHYDRAMINE HCL 50 MG/ML VIAL IV ONE (12:29)
[2017-12-09] MEDS ORDERED: NORMAL SALINE 1000 ML 1,000 ML IV ONE (12:29)
--- NOTE | 2017-12-09 12:31 | ER Document Report ---
HPI - HPI Patient complains to provider of: Respiratory symptoms, vomiting diarrhea Onset: Last week Onset/Duration: Persistent Quality of pain: No pain Pain Level: Denies Context: Presents with a one-week history of nausea, vomiting and diarrhea. Patient states she is vomited 4 times today and had diarrhea 1. Patient states that she is currently about 11 weeks and is followed by the health department. Patient has a confirmation ultrasound to confirm the location of the . Patient states she did have lower abdominal pain earlier but is presently resolved. Patient denies any vaginal bleeding. Denies any dysuria symptoms. Patient does report recent sick contacts in the household. Associated Symptoms: Nonproductive cough, Diarrhea, Nausea, Vomiting. denies: Chest pain, Earache, Fever, Headache, Rhinnorhea, Sore throat Exacerbated by: Denies Relieved by: Denies Similar symptoms previously: Yes Recently seen / treated by doctor: No - ROS ROS below otherwise negative: Yes Systems Reviewed and Negative: Yes All other systems reviewed and negative - CONSTITUTIONAL Constitutional: REPORTS: Chills. DENIES: Fever - EENT EENT: DENIES: Sore Throat - NEURO Neurology: REPORTS: Weakness - CARDIOVASCULAR Cardiovascular: DENIES: Chest pain - RESPIRATORY Respiratory: REPORTS: Coughing. DENIES: Trouble Breathing - GASTROINTESTINAL Gastrointestinal: REPORTS: Abdominal Pain - Initially, now resolved, Nausea, Patient vomiting, Diarrhea. DENIES: Black / Bloody Stools - URINARY Urinary: DENIES: Dysuria, Urgency, Frequency - REPRODUCTIVE Reproductive: REPORTS: :. 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 denies: Thyroid Disfunction Patient has suicidal ideation: No Patient has homicidal ideation: No Pulmonary Medical History: Reports: Hx Asthma Renal/ Medical History: Denies: Hx Peritoneal Dialysis Past Surgical History: Reports: Hx Oral Surgery - Abscess - Immunizations Immunizations up to date: Yes Hx Diphtheria, Pertussis, Tetanus Vaccination: Yes Vertical Provider Document - CONSTITUTIONAL Agree With Documented VS: Yes Exam Limitations: No Limitations General Appearance: WD/WN, No Apparent Distress - INFECTION CONTROL TRAVEL OUTSIDE OF THE [place] IN LAST 30 DAYS: No - HEENT HEENT: Atraumatic, Normocephalic. negative: Pharyngeal Exudate, Pharyngeal Tenderness, Pharyngeal Erythema, Tympanic Membrane Red, Tympanic Membrane Bulging - NECK Neck: Normal Inspection, Supple. negative: Lymphadenopathy-Left, Lymphadenopathy-Right - RESPIRATORY Respiratory: No Respiratory Distress, Chest Non-Tender, Rhonchi. negative: Rales, Wheezing O2 Sat by Pulse Oximetry: 99 - CARDIOVASCULAR Cardiovascular: Regular Rate, Regular Rhythm, No Murmur - GI/ABDOMEN Gastrointestinal: Abdomen Soft, Abdomen Non-Tender, No Organomegaly - BACK Back: Normal Inspection. negative: CVA Tenderness-Right, CVA Tenderness-Left - MUSCULOSKELETAL/EXTREMETIES Musculoskeletal/Extremeties: MAEW, FROM - NEURO Level of Consciousness: Awake, Alert, Appropriate Motor/Sensory: No Motor Deficit - DERM Integumentary: Warm, Dry, No Rash Course - Re-evaluation Re-evalutation: 12/09/17 13:05 Patient states that she does not want any IV fluids or lab work performed. Patient is requesting the chest x-ray be performed as well as an influenza test. Patient feels that she can manage her vomiting symptoms at home and that she does not want any needle sticks at this time. Discussed with patient reasoning behind ordering IV fluids as well as diagnostic test. Patient competent to make this decision for herself and agrees to sign a refusal of treatment form. 12/09/17 13:55 The patient now advises nurse that she does not want influenza testing or a urinalysis collected. Patient's significant other is at desk requesting to know how much longer on her x-ray results as they are anxious to be leaving. Abdomen soft, nontender. No active vomiting or diarrhea during the ER visit. Patient does not want any additional lab testing performed today. Patient plans to follow-up with her EMERGENCY ROOM CLINICIAN provider at the health department for recheck. Pt feels that she can manage her symptoms at home. - Vital Signs Vital signs: Temp Pulse Resp BP Pulse Ox 98.0 F 95 18 123/70 99 12/09/17 10:54 12/09/17 10:54 12/09/17 10:54 12/09/17 10:54 12/09/17 10:54 - Diagnostic Test Radiology reviewed: Reports reviewed Discharge - Discharge Clinical Impression: Vomiting and diarrhea Upper respiratory infection Qualifiers: URI type: unspecified URI Qualified Code(s): J06.9 - Acute upper respiratory infection, unspecified Condition: Stable Disposition: HOME, SELF-CARE Instructions: Diarrhea, Nonspecific ([facility]), Nausea or Vomiting, Nonspecific ([facility] ), Upper Respiratory Illness ([facility]) Additional Instructions: Return immediately for any new or worsening symptoms Followup with your primary care provider, call tomorrow to make a followup appointment Forms: Return to Work [facility] - Follow up tomorrow
--- NOTE | 2017-12-09 13:35 | RADIOLOGY REPORT (SQ) ---
EXAM DESCRIPTION: CHEST PA/LAT COMPLETED DATE/TIME: 12/09/2017 1:27 pm REASON FOR STUDY: cough, shield abd COMPARISON: 09/15/2017. EXAM PARAMETERS: NUMBER OF VIEWS: two views TECHNIQUE: Digital Frontal and Lateral radiographic views of the chest acquired. RADIATION DOSE: NA LIMITATIONS: none FINDINGS: LUNGS AND PLEURA: No opacities, masses or pneumothorax. No pleural effusion. MEDIASTINUM AND HILAR STRUCTURES: No masses or contour abnormalities. HEART AND VASCULAR STRUCTURES: Heart normal size. No evidence for failure. BONES: No acute findings. HARDWARE: None in the chest. OTHER: No other significant finding. IMPRESSION: NO SIGNIFICANT RADIOGRAPHIC FINDING IN THE CHEST. TECHNICAL DOCUMENTATION: JOB ID: [id number] [employer] All Rights Reserved
== END 2017-12-09 14:16 | disposition home or self-care (01) ==
LOC: ER 10:34
DX: O26.91 Pregnancy related conditions, unspecified, first trimester (principal); J06.9 Acute upper respiratory infection, unspecified; R11.2 Nausea with vomiting, unspecified; R19.7 Diarrhea, unspecified; Z3A.11 11 weeks gestation of pregnancy
CPT/HCPCS: 71046; 99283

== ENCOUNTER 2018-01-19 12:24 | Emergency (ER) | payer MEDICAID ==
--- NOTE | 2018-01-19 13:36 | ER Document Report ---
ED General - General Chief Complaint: Vaginal Bleeding Stated Complaint: ABDOMINAL PAIN Time Seen by Provider: 01/19/18 13:33 TRAVEL OUTSIDE OF THE [place] IN LAST 30 DAYS: No - HPI Patient complains to provider of: Vaginal bleeding and cramping Notes: Blood type O+ female presents with profound vaginal bleeding and cramping starting this morning. Patient is approximately 17 weeks . Confirmed by ultrasound. Patient was started to have some cramping abdominal pain on Wednesday. Today is now Wednesday. Yesterday she could feel movement in the . This morning she had a great deal of bleeding per vagina has not felt the baby move since then she did pass some clots of unknown size. Patient denies any pain at this time but says the pain initially was 8/10 sharp and cramping in nature without radiation nothing made the pain better or worse. Denies all other symptoms. - Related Data Allergies/Adverse Reactions: anesthesia unsure of type Allergy (Uncoded 01/19/18 12:29) Past Medical History - Social History Smoking Status: Unknown if Ever Smoked Family History: Arthritis, CAD, COPD, CVA, DM, Hyperlipidemia, Hypertension, Malignancy. denies: Thyroid Disfunction Pulmonary Medical History: Reports: Hx Asthma Renal/ Medical History: Denies: Hx Peritoneal Dialysis Past Surgical History: Reports: Hx Oral Surgery - Abscess - Immunizations Immunizations up to date: Yes Hx Diphtheria, Pertussis, Tetanus Vaccination: Yes Review of Systems - Review of Systems Notes: REVIEW OF SYSTEMS: CONSTITUTIONAL: -fevers, -chills EENT: -eye pain, -difficulty swallowing, -nasal congestion CARDIOVASCULAR: -chest pain, -syncope. RESPIRATORY: -cough, -SOB GASTROINTESTINAL: -abdominal pain, -nausea, -vomiting, -diarrhea GENITOURINARY: Positive for vaginal bleeding MUSCULOSKELETAL: -back pain, -neck pain SKIN: -rash or skin lesions. HEMATOLOGIC: -easy bruising or bleeding. LYMPHATIC: -swollen, enlarged glands. NEUROLOGICAL: -altered mental status or loss of consciousness, -headache, - neurologic symptoms PSYCHIATRIC: -anxiety, -depression. ALL OTHER SYSTEMS REVIEWED AND NEGATIVE. Physical Exam - Vital signs Vitals: Temp Pulse Resp BP Pulse Ox 98.6 F 102 H 18 130/65 H 100 01/19/18 12:46 01/19/18 12:46 01/19/18 12:46 01/19/18 12:46 01/19/18 12:46 - Notes Notes: PHYSICAL EXAMINATION: GENERAL: Well-appearing, well-nourished and in no acute distress. HEAD: Atraumatic, normocephalic. EYES: Pupils equal round and reactive to light, extraocular movements intact, sclera anicteric, conjunctiva are normal. ENT: nares patent, oropharynx clear without exudates. Moist mucous membranes. NECK: Normal range of motion, supple without lymphadenopathy LUNGS: Breath sounds clear to auscultation bilaterally and equal. No wheezes rales or rhonchi. HEART: Regular rate and rhythm without murmurs ABDOMEN: Soft, nontender, normoactive bowel sounds. No guarding, no rebound. No masses appreciated. EXTREMITIES: Normal range of motion, no pitting or edema. No cyanosis. NEUROLOGICAL: Cranial nerves grossly intact. Normal speech, normal gait. Normal sensory and motor exams. PSYCH: Normal mood, normal affect. SKIN: Warm, Dry, normal turgor, no rashes or lesions noted. Course - Re-evaluation Re-evalutation: 01/19/18 15:12 Present young woman presents 17 weeks with painless vaginal bleeding. Patient is hemodynamically stable, hemoglobin within normal limits. No bleeding at this time. Patient's transvaginal ultrasound release a active 17 weeks. High suspicion for placenta previa. Recommend close follow-up with DOUBLE ENDING MACHINE OPERATOR. Given strict return precautions anything should change please return - Vital Signs Vital signs: Temp Pulse Resp BP Pulse Ox 98.6 F 102 H 18 130/65 H 100 01/19/18 12:46 01/19/18 12:46 01/19/18 12:46 01/19/18 12:46 01/19/18 12:46 - Laboratory Result Diagrams: 01/19/18 13:25 Laboratory results interpreted by me: 01/19/18 01/19/18 13:25 13:25 Hgb 11.5 L Hct 32.7 L RDW 14.3 H Beta HCG, Quant 85754.00 H Discharge - Discharge Clinical Impression: Placenta previa Qualifiers: Trimester: second trimester Qualified Code(s): O44.02 - Complete placenta previa NOS or without hemorrhage, second trimester Condition: Good Disposition: HOME, SELF-CARE Instructions: Bleeding During Early ([facility]) Additional Instructions: Call your DOUBLE ENDING MACHINE OPERATOR today
[2018-01-19] MEDS ORDERED: RINGERS SOLUTION,LACTATED 1,000 ML IV ONE (13:44)
[2018-01-19 13:51] LABS: ABSOLUTE EOSINOPHILS # (AUTO) 0.1 10^3/uL (0.0-0.6); ABSOLUTE LYMPHOCYTES (AUTO) 1.6 10^3/uL (0.5-4.7); ABSOLUTE MONOCYTES (AUTO) 0.6 10^3/uL (0.1-1.4); ABSOLUTE NEUT (AUTO) 6.7 10^3/uL (1.7-8.2); BASOPHILS % (AUTO) 0.5 % (0-2); EOSINOPHILS % (AUTO) 1.3 % (0-6); HEMATOCRIT 32.7 % (36.0-47.0); HEMOGLOBIN 11.5 g/dL (12.0-15.5); LYMPHOCYTES % (AUTO) 17.4 % (13-45); MEAN CORPUSCULAR HEMOGLOBIN 30.4 pg (27.0-33.4); MEAN CORPUSCULAR HGB CONC 35.1 g/dL (32.0-36.0); MEAN CORPUSCULAR VOLUME 87 fl (80-97); PLATELET COUNT 255 10^3/uL (150-450); RED BLOOD COUNT 3.78 10^6/uL (3.72-5.28); RED CELL DISTRIBUTION WIDTH 14.3 % (11.5-14.0); SEGMENTED NEUTROPHILS % (AUTO) 73.8 % (42-78); TOTAL CELLS COUNTED % (AUTO) 100 %
--- NOTE | 2018-01-19 15:06 | RADIOLOGY REPORT (SQ) ---
EXAM DESCRIPTION: U/S OB 14+ TRNABD 1GES W/O DOP COMPLETED DATE/TIME: 01/19/2018 2:52 pm REASON FOR STUDY: spontaneous COMPARISON: 11/02/2017. TECHNIQUE: Static and Dynamic grayscale imaging performed of gravid uterus using transabdominal appr [facility]. Additional selected color Doppler and spectral images recorded. All stored on PACS. LIMITATIONS: None. FINDINGS: EGA: 17 week 5 day. JAIME: 06/24/2018. EFW: 204 g. grams PERCENTILE: Not applicable. Fetus less than or equal to 20 weeks gestation. BERNADINE: Largest pocket measures 3.3 cm. PLACENTA: Posterior. Low lying. Injury edge near the internal cervical os. PRESENTATION: Cephalic. ANATOMY: HEART RATE: 1045 beats per minute. FOUR CHAMBER HEART: Visualized. THREE VESSEL CORD: Yes. CORD INSERTION: Visualized. KIDNEYS AND BLADDER: Bladder not visualized. Kidneys appear unremarkable. STOMACH: Visualized. Appears normal. SPINE: Normal as visualized. BRAIN AND LATERAL VENTRICLES: Visualized. Appear normal. OTHER: No other significant finding. MATERNAL ADNEXA: Maternal ovaries not visualized. CERVICAL LENGTH: 2.7 cm. Closed. OTHER: No other significant finding. IMPRESSION: LIVING INTRAUTERINE . ESTIMATED GESTATIONAL AGE 17 WEEK 5 DAY. NO VISUALIZED ANOMALIES. THE PLACENTA IS LOW LYING WITH THE EDGE NEAR THE INTERNAL CERVICAL OS. REC OMMEND FOLLOW-UP PRIOR TO DELIVERY TO CONFIRM THAT PREVIA IS NOT PRESENT. Trimester of : Second trimester - 13 weeks 1 day to 27 weeks 6 days. TECHNICAL DOCUMENTATION: JOB ID: [id number] [employer]- All Rights Reserved Reading location - IP/workstation name: [email or web address]
[2018-01-19 15:29] VITALS: BP 112/63
== END 2018-01-19 15:25 | disposition home or self-care (01) ==
LOC: ER 12:24
DX: O44.02 Complete placenta previa NOS or without hemorrhage, second trimester (principal); Z3A.17 17 weeks gestation of pregnancy
CPT/HCPCS: 99284; 96360; 36415; 84702; 85025; 76805; J7120

== ENCOUNTER 2018-05-31 14:44 | Outpatient (CLI) | payer MEDICAID ==
--- NOTE | 2018-05-31 15:26 | Non Stress Test Report ---
Non Stress Test Datetime Report Generated by CPN: 05/31/2018 15:26 DEMOGRAPHIC EGA NST: 36.1 INDICATION Indication for Study: Ordered by Provider MONITORING Monitor Explained: Monitor Explained; Test Explained; Patient Verbalized Understanding Monitor Explained Other: see flowsheet for vital signs Time on Monitor: 05/31/2018 14:57 Time off Monitor: 05/31/2018 15:17 NST Duration: 20 NST INTERVENTIONS Physician Notified NST: P. Chamorro, CNM BABY A: [id number] BABY A Movement : Present Contraction Frequency : none FHR Baseline : 135 Accelerations : 15X15 Decelerations : None Variability : Moderate 6-25bpm NST Review: Meets Criteria for Reactive NST NST Review and Verified By : Gaby Montero RN NST Results: Reactive NST REPORT Report Trigger: Send Report
== END 2018-05-31 15:22 | disposition home or self-care (01) ==
LOC: LC 14:44
PROVIDERS: ATTEND Obstetrics & Gynecology
PROC: 4A1HXCZ Monitoring of Products of Conception, Cardiac Rate, External Approach (ICD-10-PCS; principal; 2018-05-31)
DX: O24.415 Gestational diabetes mellitus in pregnancy, controlled by oral hypoglycemic drugs (principal); Z3A.36 36 weeks gestation of pregnancy
CPT/HCPCS: 59025

== ENCOUNTER 2018-06-07 14:08 | Outpatient (CLI) | payer MEDICAID ==
[2018-06-07 14:43] LABS: APPEARANCE,URINE CLEAR; BILIRUBIN,URINE NEGATIVE (NEGATIVE); COLOR,URINE YELLOW; GLUCOSE, URINE NEGATIVE (NEGATIVE); KETONES,URINE NEGATIVE (NEGATIVE); LEUKOCYTE ESTERASE,URINE TRACE (NEGATIVE); NITRITE,URINE NEGATIVE (NEGATIVE); PROTEIN,URINE NEGATIVE (NEGATIVE); URINE SPECIFIC GRAVITY 1.011; UROBILINOGEN,URINE NEGATIVE mg/dL (<2.0)
[2018-06-07 15:14] LABS: URINE AMPHETAMINES SCREEN NEGATIVE; URINE BARBITURATES SCREEN NEGATIVE; URINE BENZODIAZEPINES SCREEN NEGATIVE; URINE COCAINE SCREEN NEGATIVE; URINE MARIJUANA (THC) SCREEN NEGATIVE; URINE METHADONE SCREEN NEGATIVE; URINE PHENCYCLIDINE SCREEN NEGATIVE
--- NOTE | 2018-06-07 15:44 | Non Stress Test Report ---
Non Stress Test Datetime Report Generated by CPN: 06/07/2018 15:44 DEMOGRAPHIC EGA NST: 37.1 INDICATION Indication for Study: Ordered by Provider MONITORING Monitor Explained: Monitor Explained; Test Explained; Patient Verbalized Understanding Time on Monitor: 06/07/2018 14:24 Time off Monitor: 06/07/2018 15:39 NST Duration: 75 NST INTERVENTIONS NST Interventions: PO Hydration Physician Notified NST: J. Cantor, CNM at bedside BABY A: [id number] BABY A Movement : Present Contraction Frequency : 0 FHR Baseline : 125 Accelerations : 15X15 Decelerations : None Variability : Moderate 6-25bpm NST Review: Meets Criteria for Reactive NST NST Review and Verified By : MEETA HAUSER Results: Reactive NST REPORT Report Trigger: Send Report
== END 2018-06-07 15:46 | disposition home or self-care (01) ==
LOC: LC 14:08
PROVIDERS: ATTEND Obstetrics & Gynecology
PROC: 4A1HXCZ Monitoring of Products of Conception, Cardiac Rate, External Approach (ICD-10-PCS; principal; 2018-06-07)
DX: O47.1 False labor at or after 37 completed weeks of gestation (principal); Z3A.37 37 weeks gestation of pregnancy
CPT/HCPCS: 59025; 80307; 81001

== ENCOUNTER 2018-06-10 10:27 | Inpatient (IN) | payer MEDICAID ==
[2018-06-10 11:08] LABS: APPEARANCE,URINE CLEAR; BILIRUBIN,URINE NEGATIVE (NEGATIVE); COLOR,URINE YELLOW; GLUCOSE, URINE NEGATIVE (NEGATIVE); KETONES,URINE NEGATIVE (NEGATIVE); LEUKOCYTE ESTERASE,URINE TRACE (NEGATIVE); NITRITE,URINE NEGATIVE (NEGATIVE); PROTEIN,URINE NEGATIVE (NEGATIVE); URINE SPECIFIC GRAVITY 1.006; UROBILINOGEN,URINE NEGATIVE mg/dL (<2.0)
[2018-06-10 11:26] LABS: URINE AMPHETAMINES SCREEN NEGATIVE; URINE BARBITURATES SCREEN NEGATIVE; URINE BENZODIAZEPINES SCREEN NEGATIVE; URINE COCAINE SCREEN NEGATIVE; URINE MARIJUANA (THC) SCREEN NEGATIVE; URINE METHADONE SCREEN NEGATIVE; URINE PHENCYCLIDINE SCREEN NEGATIVE
[2018-06-10] MEDS ORDERED: LIDOCAINE 1% INJ-PF (10 MG/ML) 30 ML SDV ONE ×2 (14:08→15:22)
[2018-06-10] MEDS ORDERED: OXYTOCIN/NORMAL SALINE 20 UNIT/1,000 ML RTUINJ ONE (14:09)
[2018-06-10] MEDS ORDERED: MISOPROSTOL 0.2 MG TABLET ONE (14:09)
--- NOTE | 2018-06-10 14:28 | Admission Physical ---
Datetime Report Generated by CPN: 06/10/2018 14:27 CURRENT ADMISSION Hx Assessment: The History has been Reviewed and is Current Chief Complaint: Uterine Contractions Indication for Induction: Not Applicable Admit Impression : Term, Intrauterine ; Active Labor; Intact Membranes Admit Plan: Admit to Unit; Initiate Labor Protocol ALLERGIES Medication Allergies: Yes Medication Allergies: anesthesia unknown type Latex: No Latex Allergies Food Allergies: no Environmental Allergies: no OBSTETRICAL HISTORY EDC: 06/27/2018 00:00 : 3 Para: 2 Term: 2 : 0 SAB: 0 IAB: 0 Ectopic: 0 Livin Cesareans: 0 VBACs: 0 Multiple Births: 0 Gestational Diabetes: Yes Rh Sensitization: No Incompetent Cervix: No PATRICIA: No Infertility: No ART Treatment: No Uterine Anomaly: No IUGR: No Hx Previous C/S: No Macrosomia: No Hx Loss/Stillborn: No PIH: No Hx : No Placenta Previa/Abruption: No Depression/PP Depression: Yes PTL/PROM: No Post Hemorrhage: No Current Procedures: Ultrasound; NST SEE RECORDS Alcohol: No Marijuana : No Cocaine: No Other Illicit Drugs: No Cigarettes: Never Smoker. 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 Surgery: No Heart Disease: No Hosp/Surgery: No Autoimmune Disorder: No Anesthetic Complications: No Kidney Disease: Yes Abnormal Pap Smear: No Neuro/Epilepsy: No Psychiatric Disorders: No Other Medical Diseases: No Hepatitis/Liver Disease: No Significant Family History: No Varicosities/Phlebitis: No Trauma/Violence : No Thyroid Dysfunction: No INFECTIOUS HISTORY Gonorrhea: No Genital Herpes: No Chlamydia: No Tuberculosis: No Syphilis: No Hepatitis: No HIV/AIDS Exposure: No Rash or Viral Illness: No HPV: No PHYSICAL EXAM General: Normal HEENT: Deferred Neurologic: Normal Thyroid: Normal Heart: Normal Lungs: Normal Breast: Deferred Back: Normal Abdomen: Normal Genitourinary Exam: Normal Extremities: Normal DTRs: Normal Pelvic Type: Adequate Physical Exam Comments: VE 8/90/vtx/0 GBS neg x 2 Pelvis proven 7-10 GDM, on Metformin 500 BID ? Congenital Hip Dysplasia Close interval Pregnancies FETUS A EGA: 37.4 Monitoring: External US Admit Comment: Admitted in labor Cat 1 strip, family at , ' q 4 POC discussed, Dr. Abarca aware PLANS FOR LABOR AND DELIVERY Labor and Delivery: None Pain Management: Epidural Feeding Preference: Both Benefit of Breast Feed Discussed: Yes Circumcision: No INFORMED CONSENT Assignment: Tammy Abarca MD Signature: with User ID: [email or web address] : with User ID: [email or web address]
[2018-06-10] MEDS ORDERED: RINGERS SOLUTION,LACTATED 1,000 ML IV PRN (14:32)
[2018-06-10] MEDS ORDERED: RINGERS SOLUTION,LACTATED 1,000 ML IV ONE (14:32)
[2018-06-10 15:04] LABS: ABSOLUTE LYMPHOCYTES (AUTO) 1.7 10^3/uL (0.5-4.7); ABSOLUTE MONOCYTES (AUTO) 0.7 10^3/uL (0.1-1.4); ABSOLUTE NEUT (AUTO) 7.3 10^3/uL (1.7-8.2); BASOPHILS % (AUTO) 0.3 % (0-2); EOSINOPHILS % (AUTO) 0.5 % (0-6); HEMATOCRIT 25.4 % (36.0-47.0); HEMOGLOBIN 8.3 g/dL (12.0-15.5); LYMPHOCYTES % (AUTO) 17.1 % (13-45); MEAN CORPUSCULAR HEMOGLOBIN 25.1 pg (27.0-33.4); MEAN CORPUSCULAR HGB CONC 32.7 g/dL (32.0-36.0); MEAN CORPUSCULAR VOLUME 77 fl (80-97); MONOCYTES % (AUTO) 6.9 % (3-13); PLATELET COUNT 273 10^3/uL (150-450); RED CELL DISTRIBUTION WIDTH 15.3 % (11.5-14.0); SEGMENTED NEUTROPHILS % (AUTO) 75.2 % (42-78); TOTAL CELLS COUNTED % (AUTO) 100 %; WHITE BLOOD COUNT 9.7 10^3/uL (4.0-10.5)
--- NOTE | 2018-06-10 15:32 | L&D Progress Notes ---
PROGRESS NOTES Datetime Report Generated by CPN: 06/10/2018 15:31 PROGRESS NOTE Impression: Reassuring Heart Rate Procedures: Scalp Electrode; Sterile Vag Exam Plan: Continue Present Management Informed Consent Obtained: Vaginal Delivery Vital Signs : Reviewed; Within Normal Limits Comment: VE /vtx/post/0, FSE applied, no fluid, Cat 1 strip, 's q 3 min, breathing with uc's requesting epidural, family at BS FETUS A FHR - Baseline: 140 Variability: Moderate 6-25bpm Accelerations: 15X15 Decelerations: None SIGNATURE SIGNATURE: [id number];14,[id number];13,[id number] SIGNATURE: [id number];14,[id number] SIGNATURE: [id number] SIGNATURE: 14,[id number] SIGNATURE: 14,[id number] Assignment: Tammy Abarac MD Signature: with User ID: [email or web address] : with User ID: [email or web address]
[2018-06-10] MEDS ORDERED: PHENYLEPHRINE HCL INJ/PF 10 MG/1 ML SDV ONE (16:01)
[2018-06-10] MEDS ORDERED: FENTANYL CITRATE INJ/PF 100 MCG/2 ML AMPUL ONE (16:01)
[2018-06-10] MEDS ORDERED: EPHEDRINE SULFATE INJ 50 MG/1 ML AMPULE ONE (16:01)
[2018-06-10] MEDS ORDERED: BUPIVACAINE HCL 0.25 % INJ/PF (2.5 MG/1 ML) 30 ML VIAL ONE (16:02)
[2018-06-10] MEDS ORDERED: FENTANYL/BUPIVACAINE/NS/PF 300 MCG/150 ML RTUINJ EPI ONE (16:02)
[2018-06-10] MEDS ORDERED: OXYTOCIN/NORMAL SALINE 20 UNIT/1,000 ML RTUINJ IV PRN (19:08)
[2018-06-10] MEDS ORDERED: PROMETHAZINE HCL 25 MG TABLET PO PRN (19:08)
[2018-06-10] MEDS ORDERED: ACETAMINOPHEN 650 MG SUPP.RECT PR PRN (19:08)
[2018-06-10] MEDS ORDERED: PROMETHAZINE HCL 25 MG SUPP.RECT PR PRN (19:08)
[2018-06-10] MEDS ORDERED: MAGNESIUM HYDROXIDE SUSP 30 ML UDCUP PO PRN (19:08)
[2018-06-10] MEDS ORDERED: BENZOCAINE/MENTHOL AEROSOL SPRAY 56 ML TOP PRN (19:08)
[2018-06-10] MEDS ORDERED: PROMETHAZINE HCL INJ 25 MG/1 ML VIAL IV PRN (19:08)
[2018-06-10] MEDS ORDERED: DIPH/PERTUSS(ACELL)/TETANUS VAC/PF 0.5 ML SYR (>=10YO) IM PRN (19:08)
[2018-06-10] MEDS ORDERED: DIBUCAINE 1% OINTMENT 28 GM TP PRN (19:08)
[2018-06-10] MEDS ORDERED: PSEUDOEPHEDRINE HCL 30 MG TABLET PO PRN (19:08)
[2018-06-10] MEDS ORDERED: DIPHENHYDRAMINE HCL 25 MG CAPSULE PO PRN (19:08)
[2018-06-10] MEDS ORDERED: MEASLES,MUMPS&RUBELLA VACC/PF 0.5 ML VIAL SUBCUT PRN (19:08)
[2018-06-10] MEDS ORDERED: NA PHOS,M-B/NA PHOS,DI-BA (ADULT) 133 ML ENEMA PR PRN (19:08)
[2018-06-10] MEDS ORDERED: ACETAMINOPHEN WITH CODEINE #3 TABLET PO PRN ×2 (19:08)
[2018-06-10] MEDS ORDERED: ZOLPIDEM TARTRATE 5 MG TABLET PO PRN (19:08)
[2018-06-10] MEDS ORDERED: GLYCERIN/WITCH HAZEL LEAF 1 EACH MED..PAD TP PRN (19:08)
--- NOTE | 2018-06-10 21:54 | Delivery Summary ---
Del Sum A-C Datetime Report Generated by CPN: 06/10/2018 21:54 DELIVERY PERSONNEL DELIVERY PERSONNEL: [id number] Delivery Doctor:: Tammy Abarca MD Labor and Delivery Nurse:: Cali Wilkerson RNair traffic control operator Nurse:: Kathryn Alvarado RN Hedis Abstractor/COMMISSIONING SPECIALIST: Olivia Vásquez, FEED PROJECT ENGINEER Hedis Abstractor/COMMISSIONING SPECIALIST: M JANE, ST MATERNAL INFORMATION Delivery Anesthesia: Epidural Medications After Delivery: Pitocin Bolus-Please Comment; Pitocin Drip 20 Units/1000ml NSS Maternal Complications: None LABOR SUMMARY EDC: 06/27/2018 00:00 No. Babies in Womb: 1 Attempted: No Labor Anesthesia: Epidural LABOR INFORMATION Reason for Induction: Not Applicable Onset of Labor: 06/10/2018 11:35 Complete Dilatation: 06/10/2018 18:44 Other Ripening Agents: n/a Oxytocin: Augmentation Group B Beta Strep: negative Antibiotics # of Doses: 0 Antibiotics Time of Last Dose: n/a Name of Antibiotic Given: n/a Steroids Given: None Reason Steroids Not Administered: Not Applicable Other Reason Not Administered: n/a MEMBRANES Membranes Rupture Method: Artificial Rupture of Membranes: 06/10/2018 15:24 Length of Rupture (hr): 3.52 Amniotic Fluid Color: Clear Amniotic Fluid Amount: Small Amniotic Fluid Odor: Normal STAGES OF LABOR Stage 1 hr: 7 Stage 1 min: 9 Stage 2 hr: 0 Stage 2 min: 11 Stage 3 hr: 0 Stage 3 min: 6 Total Time in Labor hr: 7 Total Time in Labor min: 26 VAGINAL DELIVERY Episiotomy: None Laceration #1: None Laceration Extension #1: N/A Laceration Repair: Not Applicable Sponge Count Correct: N/A Sharps Count Correct: N/A BABY A INFORMATION Infant Delivery Date/Time: 06/10/2018 18:55 Method of Delivery: Vaginal Born in Route : No : N/A Forceps: N/A Vacuum Extraction: N/A Shoulder Dystocia : No PRESENTATION/POSITION BABY A Presentation: Cephalic Cephalic Presentation: N/A Vertex Position: Right Occipital Anterior Breech Presentation: N/A PLACENTA INFORMATION BABY A Placenta Delivery Time : 06/10/2018 19:01 Placenta Method of Delivery: Spontaneous Placenta Status: Delivered SCORES BABY A Heart Rate 1 min: >100 bpm Resp Effort 1 min: Good Cry Reflex Irritability 1 min: Cough or Sneeze or Pulls Away Muscle Tone 1 min: Active Motion Color 1 min: Blue/Pale Resuscitation Effort 1 min: Tactile Stimulation SCORE 1 MIN: 8 Heart Rate 5 min: >100 bpm Resp Effort 5 min: Good Cry Reflex Irritability 5 min: Cough or Sneeze or Pulls Away Muscle Tone 5 min: Active Motion Color 5 min: Body Wheeler, Extremities Blue Resuscitation Effort 5 min: Tactile Stimulation SCORE 5 MIN: 9 INFORMATION BABY A Gestational Age at Delivery: 37.4 Gestational Status: Early Term- 37- 38.6 Weeks Infant Outcome : Liveborn Condition : Stable Infant Sex: Female IDENTIFICATION BABY A Verification Date/Time: 06/10/2018 19:28 ID Band Number: [id number] Mother's Name Verified: Yes Infant RN Verifying Infant: rn kossmann Additional Verifying Personnel: sorority supervisor parris WEIGHT/LENGTH BABY A Infant Birthweight (gm): 3600 Weight (lb): 7 Weight (oz): 15 Length (in): 21.00 Length (cm): 53.34 CORD INFORMATION BABY A No. Cord Vessels: 3 Nuchal Cord : Around Neck x1, Loose Cord Blood Taken: Yes-For Eval (Mom's Blood Type - or O+) Infant Suction: None ASSESSMENT BABY A Complications: None Physical Findings at Delivery: Within Normal Limits Infant Respirations: Appears Normal Skin to Skin: Yes Skin to Skin Time (min): 60 Postdoctoral Research Fellow/ALS Called : No Care By: Stacy WILKERSON RN Transferred To: Remains with Mother BABY B INFORMATION : N/A SIGNATURES Signature: with User ID: [email or web address]
[2018-06-10] MEDS: IBUPROFEN 800 MG TABLET PO SCH (22:15)
[2018-06-10] MEDS: FAMOTIDINE 20 MG TABLET PO SCH (22:15)
[2018-06-11] MEDS: IBUPROFEN 800 MG TABLET PO SCH ×3 (06:25→21:22)
[2018-06-11 08:24] LABS: HEMATOCRIT 24.8 % (36.0-47.0); HEMOGLOBIN 8.1 g/dL (12.0-15.5); MEAN CORPUSCULAR HGB CONC 32.7 g/dL (32.0-36.0); MEAN CORPUSCULAR VOLUME 77 fl (80-97); PLATELET COUNT 232 10^3/uL (150-450); RED BLOOD COUNT 3.25 10^6/uL (3.72-5.28); WHITE BLOOD COUNT 12.1 10^3/uL (4.0-10.5)
--- NOTE | 2018-06-11 08:41 | PDOC PROGRESS REPORT ---
Subjective-OB Progress Note for:: 06/11/18 Subjective: sleeping, doing well, no c/o, hsb at bs Physical Exam (OB) Vital Signs: Temp Pulse Resp BP Pulse Ox 97.8 F 72 19 115/72 100 06/10/18 21:35 06/10/18 21:35 06/10/18 21:35 06/10/18 21:35 06/10/18 21:35 Intake & Output 06/10/18 06/11/18 06/12/18 06:59 06:59 06:59 Intake Total 900 Balance 900 Weight 87.6 kg - Lochia Lochia Amount: Scant < 10 ml Lochia Color: Rubra/Red - Abdomen Description: Soft, Round Hernia Present: No Fundal Description: Firm, Midline Fundal Height: u/u - u/2 Objective-Diagnostic Laboratory: 06/11/18 07:18 06/10/18 06/10/18 06/10/18 10:51 14:53 14:53 WBC 9.7 RBC 3.30 L Hgb 8.3 L Hct 25.4 L MCV 77 L MCH 25.1 L MCHC 32.7 RDW 15.3 H Plt Count 273 Seg Neutrophils % 75.2 Lymphocytes % 17.1 Monocytes % 6.9 Eosinophils % 0.5 Basophils % 0.3 Absolute Neutrophils 7.3 Absolute Lymphocytes 1.7 Absolute Monocytes 0.7 Absolute Eosinophils 0.0 Absolute Basophils 0.0 Urine Color YELLOW Urine Appearance CLEAR Urine pH 7.0 Ur Specific [place] 1.006 Urine Protein NEGATIVE Urine Glucose (UA) NEGATIVE Urine Ketones NEGATIVE Urine Blood NEGATIVE Urine Nitrite NEGATIVE Ur Leukocyte Esterase TRACE H Blood Type O POSITIVE Antibody Screen NEGATIVE 06/11/18 07:18 WBC 12.1 H RBC 3.25 L Hgb 8.1 L Hct 24.8 L MCV 77 L MCH 25.0 L MCHC 32.7 RDW 15.0 H Plt Count 232 Seg Neutrophils % Lymphocytes % Monocytes % Eosinophils % Basophils % Absolute Neutrophils Absolute Lymphocytes Absolute Monocytes Absolute Eosinophils Absolute Basophils Urine Color Urine Appearance Urine pH Ur Specific [place] Urine Protein Urine Glucose (UA) Urine Ketones Urine Blood Urine Nitrite Ur Leukocyte Esterase Blood Type Antibody Screen Assessment and Plan(PN) - Assessment and Plan (1) Vaginal delivery Is this a current diagnosis for this admission?: Yes (2) Gestational diabetes mellitus Qualifiers: Gestational diabetes mellitus control: oral hypoglycemic-controlled Trimester: second trimester Qualified Code(s): O24.415 - Gestational diabetes mellitus in , controlled by oral hypoglycemic drugs Is this a current diagnosis for this admission?: Yes (3) Anemia Qualifiers: Anemia type: iron deficiency Is this a current diagnosis for this admission?: Yes - Time Spent with Patient Time with patient: Less than 15 minutes Medications reviewed and adjusted accordingly: Yes - Disposition Anticipated Discharge: Home Within: within 24 hours
[2018-06-11] MEDS: SENNOSIDES/DOCUSATE 8.6-50 MG 1 EACH TABLET PO SCH (09:35)
[2018-06-11] MEDS: FERROUS SULFATE 325 MG TABLET PO SCH ×2 (09:35→18:15)
[2018-06-11] MEDS: FAMOTIDINE 20 MG TABLET PO SCH ×2 (09:35→21:22)
[2018-06-11] MEDS: PRENATAL VITAMIN W DHA CAPSULE PO SCH (09:35)
[2018-06-11] MEDS: DOCUSATE SODIUM 100 MG CAPSULE PO SCH ×2 (09:35→18:15)
[2018-06-12] MEDS: IBUPROFEN 800 MG TABLET PO SCH (06:14)
[2018-06-12] MEDS: FAMOTIDINE 20 MG TABLET PO SCH (09:28)
[2018-06-12] MEDS: DOCUSATE SODIUM 100 MG CAPSULE PO SCH (09:28)
[2018-06-12] MEDS: SENNOSIDES/DOCUSATE 8.6-50 MG 1 EACH TABLET PO SCH (09:28)
[2018-06-12] MEDS: PRENATAL VITAMIN W DHA CAPSULE PO SCH (09:28)
[2018-06-12] MEDS: FERROUS SULFATE 325 MG TABLET PO SCH (09:29)
--- NOTE | 2018-06-12 09:41 | PDOC PROGRESS REPORT ---
Subjective-OB Progress Note for:: 06/12/18 Subjective: Doing well, needs to go home, has other children and baby going under bili lights, denies any complaints Physical Exam (OB) Vital Signs: Temp Pulse Resp BP Pulse Ox 98.0 F 61 18 122/71 99 06/12/18 08:03 06/12/18 08:03 06/12/18 08:03 06/12/18 08:03 06/12/18 08:03 Intake & Output 06/11/18 06/12/18 06/13/18 06:59 06:59 06:59 Intake Total 900 500 Balance 900 500 Weight 87.6 kg - PIH/Pre-Eclampsia DTR's: 2 + Clonus: Positive Headache: Present Epigastric Pain: No Visual Changes: No - Lochia Lochia Amount: Scant < 10 ml Lochia Color: Rubra/Red - Abdomen Description: Tender, Soft Hernia Present: No Fundal Description: Firm, Midline Fundal Height: u/u - u/2 Objective-Diagnostic Laboratory: 06/11/18 07:18 Assessment and Plan(PN) - Assessment and Plan (1) Vaginal delivery Is this a current diagnosis for this admission?: Yes (2) Gestational diabetes mellitus Qualifiers: Gestational diabetes mellitus control: oral hypoglycemic-controlled Trimester: second trimester Qualified Code(s): O24.415 - Gestational diabetes mellitus in , controlled by oral hypoglycemic drugs Is this a current diagnosis for this admission?: Yes (3) Anemia Qualifiers: Anemia type: iron deficiency Is this a current diagnosis for this admission?: Yes - Time Spent with Patient Time with patient: Less than 15 minutes Medications reviewed and adjusted accordingly: Yes - Disposition Anticipated Discharge: Home Within: Other - home today
--- NOTE | 2018-06-12 09:46 | PDOC DISCHARGE SUMMARY ---
Final Diagnosis Discharge Date: 06/12/18 - Final Diagnosis (1) Vaginal delivery Is this a current diagnosis for this admission?: Yes (2) Gestational diabetes mellitus Is this a current diagnosis for this admission?: Yes (3) Anemia Is this a current diagnosis for this admission?: Yes Discharge Data - Discharge Medication Home Medications: Vit/Iron Fum/Folic AC [ Tablet] 1 each PO DAILY 06/07/18 Gestational Age: 37.4 Reason(s) for Admission: Induction of Labor, PIH Admission Note: pre-eclampsia Procedures: NST, Ultrasound Intrapartum Procedure(s): Spontaneous Vaginal Delivery - Data Baby 1 Female at 1 minute: 8 at 5 minutes: 9 Weight: 3.6 kg Home with Mother: No Complications: Yes - janudice - Diagnosis Test Laboratory: Temp Pulse Resp BP Pulse Ox 98.0 F 61 18 122/71 99 06/12/18 08:03 06/12/18 08:03 06/12/18 08:03 06/12/18 08:03 06/12/18 08:03 06/10/18 06/10/18 06/11/18 10:51 14:53 07:18 RBC 3.30 L 3.25 L Hgb 8.3 L 8.1 L Hct 25.4 L 24.8 L Urine Opiates Screen NEGATIVE - Discharge information/Instructions Discharge Activity: Activity As Tolerated, No Lifting Over 10 Pounds, No Lifting /Push/Pulling, Pelvic Rest Discharge Diet: As Tolerated, Regular Disposition: HOME, SELF-CARE Follow up with: [facility] in: 2, Days - check BP
[2018-06-12 10:40] VITALS: BP 116/78
== END 2018-06-12 11:10 | disposition home or self-care (01) | DRG 775 ==
LOC: LC 10:27 → LR 14:12 → 2S 21:36
PROVIDERS: ADMIT Obstetrics & Gynecology; ATTEND Obstetrics & Gynecology
PROC: 10E0XZZ Delivery of Products of Conception, External Approach (ICD-10-PCS; principal; 2018-06-10)
PROC: 10907ZC Drainage of Amniotic Fluid, Therapeutic from Products of Conception, Via Natural or Artificial Opening (ICD-10-PCS; 2018-06-10)
PROC: 4A1HXCZ Monitoring of Products of Conception, Cardiac Rate, External Approach (ICD-10-PCS; 2018-06-10)
DX: O24.425 Gestational diabetes mellitus in childbirth, controlled by oral hypoglycemic drugs (principal); O99.02 Anemia complicating childbirth; O13.4 Gestational [pregnancy-induced] hypertension without significant proteinuria, complicating childbirth; D50.9 Iron deficiency anemia, unspecified; O99.344 Other mental disorders complicating childbirth; F32.9 Major depressive disorder, single episode, unspecified; O69.81X0 Labor and delivery complicated by cord around neck, without compression, not applicable or unspecified; Z88.4 Allergy status to anesthetic agent; Z28.20 Immunization not carried out because of patient decision for unspecified reason; Z3A.37 37 weeks gestation of pregnancy; Z37.0 Single live birth
CPT/HCPCS: 36415; 59025; 80307; 81005; 85025; 85027; 86592; 86850; 86900; 86901; J2370; J2590; J3010; J3490

== ENCOUNTER 2018-10-17 16:32 | Emergency (ER) | payer MEDICAID ==
[2018-10-17 16:38] VITALS: BP 125/72
--- NOTE | 2018-10-17 18:02 | ER Document Report ---
ED Medical Screen (RME) - General Chief Complaint: Abdominal Pain Stated Complaint: ABDOMINAL PAIN Time Seen by Provider: 10/17/18 18:01 Mode of Arrival: Ambulatory Information source: Patient Notes: 23-year-old female with reported history of gastritis who presents to the emergency room with abdominal pain since August. Patient states she has been taken Tylenol for it. Her only other medicines are control pills. She does not have a local doctor. She reports nausea without diarrhea. She reports diarrhea without blood. She reports weight loss. TRAVEL OUTSIDE OF THE [place] IN LAST 30 DAYS: No - Related Data Allergies/Adverse Reactions: anesthesia unsure of type Allergy (Uncoded 06/10/18 10:42) Past Medical History - Social History Chew tobacco use (# tins/day): No Frequency of alcohol use: None Drug Abuse: None Pulmonary Medical History: Reports: Hx Asthma Renal/ Medical History: Denies: Hx Peritoneal Dialysis Past Surgical History: Reports: Hx Oral Surgery - Abscess - Immunizations Immunizations up to date: Yes Hx Diphtheria, Pertussis, Tetanus Vaccination: Yes Physical Exam - Vital signs Vitals: Temp Pulse Resp BP Pulse Ox 99.0 F 93 12 125/72 99 10/17/18 16:37 10/17/18 16:37 10/17/18 16:37 10/17/18 16:37 10/17/18 16:37 Course - Vital Signs Vital signs: Temp Pulse Resp BP Pulse Ox 99.0 F 93 12 125/72 99 10/17/18 16:37 10/17/18 16:37 10/17/18 16:37 10/17/18 16:37 10/17/18 16:37 Doctor's Discharge - Discharge Referrals: SUNITHA TALLEY MD [Primary Care Provider] - Follow up as needed
[2018-10-17 18:55] LABS: ABSOLUTE BASOPHILS # (AUTO) 0.1 10^3/uL (0.0-0.2); ABSOLUTE EOSINOPHILS # (AUTO) 0.1 10^3/uL (0.0-0.6); ABSOLUTE LYMPHOCYTES (AUTO) 2.2 10^3/uL (0.5-4.7); ABSOLUTE MONOCYTES (AUTO) 0.6 10^3/uL (0.1-1.4); ABSOLUTE NEUT (AUTO) 7.2 10^3/uL (1.7-8.2); BASOPHILS % (AUTO) 0.7 % (0-2); EOSINOPHILS % (AUTO) 0.5 % (0-6); HEMATOCRIT 34.8 % (36.0-47.0); LYMPHOCYTES % (AUTO) 21.9 % (13-45); MEAN CORPUSCULAR HEMOGLOBIN 27.6 pg (27.0-33.4); MEAN CORPUSCULAR HGB CONC 34.4 g/dL (32.0-36.0); MEAN CORPUSCULAR VOLUME 80 fl (80-97); MONOCYTES % (AUTO) 6.3 % (3-13); PLATELET COUNT 342 10^3/uL (150-450); RED BLOOD COUNT 4.34 10^6/uL (3.72-5.28); RED CELL DISTRIBUTION WIDTH 13.7 % (11.5-14.0); SEGMENTED NEUTROPHILS % (AUTO) 70.6 % (42-78); TOTAL CELLS COUNTED % (AUTO) 100 %; WHITE BLOOD COUNT 10.2 10^3/uL (4.0-10.5)
[2018-10-17 19:08] LABS: APPEARANCE,URINE SLIGHTLY-CLOUDY; BILIRUBIN,URINE NEGATIVE (NEGATIVE); COLOR,URINE YELLOW; GLUCOSE, URINE NEGATIVE (NEGATIVE); KETONES,URINE NEGATIVE (NEGATIVE); LEUKOCYTE ESTERASE,URINE NEGATIVE (NEGATIVE); NITRITE,URINE NEGATIVE (NEGATIVE); PROTEIN,URINE NEGATIVE (NEGATIVE); URINE SPECIFIC GRAVITY 1.021; UROBILINOGEN,URINE NEGATIVE mg/dL (<2.0)
[2018-10-17 19:12] LABS: ALANINE AMINOTRANSFERASE 47 U/L (9-52); ALKALINE PHOSPHATASE 101 U/L (38-126); ANION GAP 10 (5-19); ASPARTATE AMINO TRANSFERASE 29 U/L (14-36); BILIRUBIN,DIRECT 0.2 mg/dL (0.0-0.4); BILIRUBIN,TOTAL 0.5 mg/dL (0.2-1.3); BLOOD UREA NITROGEN 10 mg/dL (7-20); CALCIUM 9.2 mg/dL (8.4-10.2); CARBON DIOXIDE 25 mmol/L (22-30); CHLORIDE 106 mmol/L (98-107); GLUCOSE 99 mg/dL (75-110); LIPASE 27.9 U/L (23-300); SODIUM 141.1 mmol/L (137-145); TOTAL PROTEIN 7.3 g/dL (6.3-8.2)
[2018-10-17] MEDS ORDERED: SUCRALFATE 1 GM TABLET PO ONE (20:13)
[2018-10-17] MEDS ORDERED: PROMETHAZINE HCL 25 MG TABLET PO ONE (20:13)
[2018-10-17] MEDS ORDERED: FAMOTIDINE 20 MG TABLET PO ONE (20:13)
--- NOTE | 2018-10-17 20:18 | ER Document Report ---
ED GI/ - General Chief Complaint: Abdominal Pain Stated Complaint: ABDOMINAL PAIN Time Seen by Provider: 10/17/18 18:01 Mode of Arrival: Ambulatory Notes: Patient is a 23-year-old female that comes to the emergency department for chief complaint of abdominal pain. When asked specifically the location of the abdominal pain she points to her left upper quadrant as being the worst. She states that she has been dealing with this daily since August. She states symptoms are worse with eating, she reports nausea, she denies vomiting. She reports occasional loose stool. She is eating less and states she has lost some weight as a result. She denies fever or chills, vaginal discharge or bleeding, dysuria, flank pain. Only past medical history reported is oral surgery. Only medication reported is contraception. TRAVEL OUTSIDE OF THE [place] IN LAST 30 DAYS: No - Related Data Allergies/Adverse Reactions: anesthesia unsure of type Allergy (Uncoded 06/10/18 10:42) Past Medical History - General Information source: Patient - Social History Smoking Status: Never Smoker Chew tobacco use (# tins/day): No Frequency of alcohol use: None Drug Abuse: None Family History: Arthritis, CAD, COPD, CVA, DM, Hyperlipidemia, Hypertension, Malignancy. denies: Thyroid Disfunction Patient has suicidal ideation: No Patient has homicidal ideation: No Pulmonary Medical History: Reports: Hx Asthma Renal/ Medical History: Denies: Hx Peritoneal Dialysis Past Surgical History: Reports: Hx Oral Surgery - Abscess - Immunizations Immunizations up to date: Yes Hx Diphtheria, Pertussis, Tetanus Vaccination: Yes Review of Systems - Review of Systems Constitutional: No symptoms reported EENT: No symptoms reported Cardiovascular: No symptoms reported Respiratory: No symptoms reported Gastrointestinal: See HPI Genitourinary: See HPI Female Genitourinary: See HPI Musculoskeletal: No symptoms reported Skin: No symptoms reported Hematologic/Lymphatic: No symptoms reported Neurological/Psychological: No symptoms reported Physical Exam - Vital signs Vitals: Temp Pulse Resp BP Pulse Ox 99.0 F 93 12 125/72 99 10/17/18 16:37 10/17/18 16:37 10/17/18 16:37 10/17/18 16:37 10/17/18 16:37 - Notes Notes: GENERAL: Alert, interacts well. No acute distress. HEAD: Normocephalic, atraumatic. EYES: Pupils equal, round, and reactive to light. Extraocular movements intact. ENT: Oral mucosa moist, tongue midline. Oropharynx unremarkable. Airway patent. Nares patent, no nasal septal hematoma, TM's intact. NECK: Full range of motion. Supple. Trachea midline. LUNGS: Clear to auscultation bilaterally, no wheezes, rales, or rhonchi. No respiratory distress. HEART: Regular rate and rhythm. No murmur ABDOMEN: Left upper quadrant tenderness, minimal epigastric tenderness, right upper quadrants normal, normal lower abdominal exam. No rigidity or distention. GENITOURINARY: Deferred EXTREMITIES: Moves all 4 extremities spontaneously. No edema, normal radial and dorsalis pedis pulses bilaterally. No cyanosis. BACK: no cervical, thoracic, lumbar midline tenderness. No saddle anesthesia, normal distal neurovascular exam. NEUROLOGICAL: Alert and oriented x3. Normal speech. [cranial nerves II through XII grossly intact]. PSYCH: Normal affect, normal mood. SKIN: Warm, dry, normal turgor. No rashes or lesions noted. Course - Re-evaluation Re-evalutation: CBC, chemistry, lipase, urinalysis, hCG unremarkable. Patient has left upper quadrant tenderness which is mild, ongoing symptoms of nausea and intermittent pain, history of gastritis. Remaining abdomen unremarkable including right upper quadrant. I have low suspicion of acute abdomen based on her examination evaluation. Most likely she does have a gastritis, she is currently on nothing for this. Discussed the treatment for this, follow-up, and return precautions. Patient states satisfaction and agreement with plan. - Vital Signs Vital signs: Temp Pulse Resp BP Pulse Ox 99.0 F 93 12 125/72 99 10/17/18 16:37 10/17/18 16:37 10/17/18 16:37 10/17/18 16:37 10/17/18 16:37 - Laboratory Result Diagrams: 10/17/18 18:42 10/17/18 18:42 Laboratory results interpreted by me: 10/17/18 18:42 Hct 34.8 L Discharge - Discharge Clinical Impression: Abdominal pain Qualifiers: Abdominal location: upper abdomen, unspecified Qualified Code(s): R10.10 - Upper abdominal pain, unspecified Condition: Stable Disposition: HOME, SELF-CARE Additional Instructions: Your symptoms over the extended time period back to August, your evaluation, and your workup indicate that you have inflammation of the upper abdominal tract (esophagitis/gastritis). You have been prescribed famotidine and Carafate to treat the inflammation, take as prescribed for the next 5 days, take the Phenergan if needed for nausea. Avoid NSAIDs, spicy food, caffeine, smoking, alcohol. Start with bland food and clear liquids. Progress to normal diet as tolerated. Follow-up with the referral listed below. It is possible you will need H. pylori testing or even endoscopy. Return if you worsen including vomiting, vomiting blood, black stools, severe abdominal pain, or any other concerning or worsening symptoms. Prescriptions: Famotidine [Pepcid 20 mg Tablet] 20 mg PO BID #14 tablet Promethazine HCl [Phenergan 25 mg Tablet] 25 mg PO Q6H PRN #20 tablet PRN Reason: Sucralfate [Carafate 1 gm Tablet] 1 gm PO QID #20 tablet Forms: Return to Work Referrals: [facility] [Provider Group] - Follow up as needed
== END 2018-10-17 20:47 | disposition home or self-care (01) ==
LOC: ER 16:32
DX: R10.12 Left upper quadrant pain (principal); R11.0 Nausea; R19.7 Diarrhea, unspecified
CPT/HCPCS: 99284; 36415; 83690; 85025; 81025; 80053; 81001; J3490 ×3